=== PATIENT | male | born 1960 | race Caucasian/White ===

== ENCOUNTER → 2018-10-05 14:44 | Outpatient (CLI) | payer OTHER, MEDICAID, SELFPAY ==
--- NOTE | 2018-10-05 | DI.RAD.S_ITS ---
PROCEDURE: XR LUMBAR SPINE 2-3V INDICATIONS: LOW BACK PAIN/TINGLING TECHNIQUE: 3 views of the lumbar spine were acquired. COMPARISON: None. FINDINGS: Bones: 5 [id number] vertebrae are present. There is normal bony alignment. No vertebral body compression fractures. No suspicious bony lesions. There is a moderate degree of degenerative disease and a moderately severe degree of facet osteoarthritis along the lumbosacral spine with degenerative disc height reduction most prominent at L2-3 and facet osteoarthritis most prominent from L4-S1. Spinal and foraminal stenosis likely is associated. Soft tissues: Overlying bowel gas pattern is normal. No suspicious soft tissue calcifications. IMPRESSION: Moderately severe degenerative disc disease and facet osteoarthritis along the lumbosacral spine. No trauma found, no significant subluxation identified. Facet osteoarthritis at L4-5 and L5-S1 is moderately severe to severe in likely contributes to the presence of spinal and foraminal stenosis in those areas. Dictated by: Óscar Parr M.D. on 10/05/2018 at 16:34 Approved by: Óscar Parr M.D. on 10/05/2018 at 16:35
== END ==
PROVIDERS: PCP Nurse Practitioner Family; Visit Provider Nurse Practitioner Family
DX: M54.5 Low back pain (principal); M51.37 Other intervertebral disc degeneration, lumbosacral region; M47.817 Spondylosis without myelopathy or radiculopathy, lumbosacral region; M47.816 Spondylosis without myelopathy or radiculopathy, lumbar region
CPT/HCPCS: 72100

== ENCOUNTER → 2018-10-15 14:33 | Outpatient (CLI) | payer OTHER, MEDICAID, SELFPAY ==
[2018-10-15 14:55] LABS: Hematocrit 50.3 % (41-53); Hemoglobin 17.4 g/dL (13.5-17.5); Mean Corpuscular HGB Conc 34.5 % (30-36); Mean Corpuscular Hemoglobin 32.2 PG (26-34); Mean Corpuscular Volume 93.4 fL (80-100); Platelet Count 184 X10^3/uL (150-400); Red Blood Cell Count 5.39 X10^6/uL (4.5-5.9); Red Cell Distribution Width 12.9 % (11.6-14.8); White Blood Cell Count 8.7 X10^3/uL (4.5-11.0)
[2018-10-15 15:44] LABS: Erythrocyte Sedimentation Rate 2 MM/HR (0-15)
[2018-10-15 15:58] LABS: Alanine Aminotransferase 42 IU/L (21-72); Albumin 4.4 g/dL (3.5-5.0); Albumin Globulin Ratio 1.1 (1.0-2.8); Alkaline Phosphatase 68 U/L (38-126); Aspartate Aminotransferase 32 IU/L (17-59); BUN Creatinine Ratio 18.8 (6-22); Bilirubin Total 0.6 mg/dL (0.2-1.3); Blood Urea Nitrogen 15 mg/dL (9-20); Calcium 9.5 mg/dL (8.4-10.2); Carbon Dioxide 28 mmol/L (22-32); Chloride 101 mmol/L (98-107); Cholesterol 181 mg/dL (140-199); Estimated Glomerular Filt Rate > 60.0 mL/min (>60); Glucose 104 mg/dL (70-100); HDL Cholesterol 30 mg/dL (40-60); HEMOLYSIS 23 (0-50); LDL Cholesterol Calculated 131 mg/dL (<100); Potassium 4.3 mmol/L (3.4-5.1); Sodium 140 mmol/L (137-145); Total Protein 8.4 g/dL (6.3-8.2); Triglycerides 101 mg/dL (35-150)
[2018-10-15 17:02] LABS: Hep C Virus Ab w/Reflex Quant REACTIVE s/c (NEGATIVE)
== END ==
PROVIDERS: PCP Nurse Practitioner Family; Visit Provider Nurse Practitioner Family
DX: R53.83 Other fatigue (principal); M54.5 Low back pain; Z20.5 Contact with and (suspected) exposure to viral hepatitis
CPT/HCPCS: 36415; 80053; 80061; 85027; 85651; 86803; 87522

== ENCOUNTER → 2018-10-15 17:40 | Outpatient (CLI) | payer OTHER, MEDICAID, SELFPAY ==
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
== END ==
PROVIDERS: PCP Nurse Practitioner Family; Visit Provider Nurse Practitioner Family
DX: M54.5 Low back pain (principal); M79.605 Pain in left leg; M79.604 Pain in right leg; M51.36 Other intervertebral disc degeneration, lumbar region; M51.37 Other intervertebral disc degeneration, lumbosacral region; M48.061 Spinal stenosis, lumbar region without neurogenic claudication; M48.07 Spinal stenosis, lumbosacral region; E88.2 Lipomatosis, not elsewhere classified
CPT/HCPCS: 36415; 72148; 80053; 80061; 85027; 85651; 86803; 87522

== ENCOUNTER → 2018-10-31 16:58 | Outpatient (CLI) | payer OTHER, MEDICAID, SELFPAY ==
--- NOTE | 2018-10-31 17:02 | DI.RAD.S_ITS ---
PROCEDURE: XR SHOULDER RT MIN 2V INDICATIONS: right shoulder pain TECHNIQUE: 3 views of the shoulder were acquired. COMPARISON: None. FINDINGS: Bones: No fractures or dislocations. No suspicious bony lesions. Mild to moderate acromioclavicular and glenohumeral joint degeneration. Visualized ribs appear intact. Soft tissues: No suspicious soft tissue calcifications. IMPRESSION: No fractures. [id number] degenerative joint disease. Dictated by: Keya Juárez M.D. on 11/01/2018 at 9:39 Approved by: Keya Juárez M.D. on 11/01/2018 at 9:41
--- NOTE | 2018-10-31 17:02 | DI.RAD.S_ITS ---
PROCEDURE: XR LUMBAR SPINE MIN 4V INDICATIONS: worsening numbess tingling associated with back pain TECHNIQUE: 5 views of the lumbar spine were acquired. COMPARISON: None. FINDINGS: Bones: 5 nonrib-bearing vertebrae are present. There is grade 1 retrolisthesis at L3-L4 and grade one anterolisthesis at L4-L5. No vertebral body compression fractures. No suspicious bony lesions. There is degenerative disc disease, severe at L2-L3, moderate L1-L2, and L3-L4 and L4-L5. Severe facet arthropathy at L4-L5 and L5-S1. Soft tissues: Overlying bowel gas pattern is normal. No suspicious soft tissue calcifications. Oblique images: No pars defects. IMPRESSION: Severe degenerative disc and facet disease lumbar spine. Dictated by: Keya Juárez M.D. on 11/01/2018 at 10:15 Approved by: Keya Juárez M.D. on 11/01/2018 at 10:56
[2018-10-31 18:29] LABS: Hepatitis B Surface Antigen NEGATIVE s/c (NEGATIVE)
[2018-10-31 18:38] LABS: HIV 1 and 2 Antibody NEGATIVE (NEGATIVE)
[2018-11-02 14:10] LABS: Hepatitis B Core Antibody Nonreactive (Nonreactive)
[2018-11-02 14:47] LABS: Hepatitis B Surf Ab Qualitativ Nonreactive (Nonreactive)
[2018-11-03 13:38] LABS: Hepatitis A Ab IgM Nonreactive (Nonreactive); Hepatitis A Ab Total Reactive (Nonreactive)
== END ==
PROVIDERS: PCP Nurse Practitioner Family; Visit Provider Nurse Practitioner Family
DX: M54.5 Low back pain (principal); M25.511 Pain in right shoulder; Z20.5 Contact with and (suspected) exposure to viral hepatitis
CPT/HCPCS: 36415; 72110; 73030; 86703; 86704; 86706; 87340

== ENCOUNTER → 2019-01-15 12:47 | Outpatient (CLI) | payer OTHER, MEDICAID, SELFPAY ==
--- NOTE | 2019-01-15 12:48 | DI.US.S_ITS ---
PROCEDURE: US RENAL COMPLETE INDICATIONS: NEW ONSET UNCONTROLLED HTN TECHNIQUE: Real-time scanning was performed of the kidneys and bladder, with image documentation. COMPARISON: [facility], US, US ABDOMEN COMPLETE, 01/04/2019, 12:42. FINDINGS: Kidneys: Kidneys are normal in size. Right kidney measures 12.8 cm long; left kidney measures 13.3 cm long. Right renal cortical thickness is 0.9 cm; left renal cortical thickness is 1.5 cm. Renal cortical echotexture is normal. No hydronephrosis or nephrolithiasis. No suspicious solid mass lesions. 5 mm right renal cyst. Bladder: Pre-void bladder volume is 604 mL. Post-void residual is 43 mL. Pre-void images demonstrate no intraluminal masses or stones. On pre-void images, bilateral ureteral jets are noted with color Doppler interrogation. (Of note, ureteral jets may not be detectable in up to 25% of cases due to insufficient differences in specific gravity between ureteral and bladder urine). Miscellaneous: No free pelvic fluid. IMPRESSION: 1. Right renal cortical thinning. 2. 5 mm right renal cyst. 3. 43 cc or a bladder PVR. Dictated by: Scott RUFFIN Interpreted: Mariya To MD on 01/15/2019 at 15:46 Approved by: Mariya To M.D. on 01/15/2019 at 16:03
== END ==
PROVIDERS: PCP Nurse Practitioner Family; Visit Provider Nurse Practitioner Family
DX: N28.1 Cyst of kidney, acquired (principal); I10 Essential (primary) hypertension
CPT/HCPCS: 76770

== ENCOUNTER → 2019-01-22 13:57 | Outpatient (CLI) | payer OTHER, MEDICAID, SELFPAY ==
--- NOTE | 2019-01-22 | DI.MRI.S_ITS ---
PROCEDURE: MR ABDOMEN WO/W CON INDICATIONS: CHRONIC HEPATITIS C WITHOUT HEPATIC COMA TECHNIQUE: Coronal HASTE, axial 2D FLASH in- and [id number]; axial breath-hold T2 FSE. Dynamic axial VIBE during the administration of contrast; post-contrast coronal VIBE or 2D FLASH with fat saturation from the hepatic dome to the iliac crests. Optional diffusion weighted imaging and ADC may be performed. COMPARISON: [facility], US, US ABDOMEN COMPLETE, 01/04/2019, 12:42. FINDINGS: Image quality: There is motion artifact limiting evaluation. Lung bases: No basal pleural effusions. Heart size is normal. Solid organs: Within segment 2 of the left hepatic lobe there is an oval T1 hypointense and T2 hyperintense lesion demonstrated measuring up to 1.1 x 1.0 cm. This demonstrates nodular peripheral enhancement on the arterial and nannette venous phases with progressive centripetal enhancement. Although the delayed series is limited by motion artifact, there is likely persistent mild hypervascular enhancement. The findings are compatible with a cavernous hemangioma. Elsewhere in the liver, no other discrete mass, abnormal enhancement, or definite suspicious washout identified to suggest a hepatoma. Gallbladder appears within normal limits without gallstones. Biliary system is non dilated. Pancreas is normal in morphology. Spleen is normal in size and enhancement. No adrenal nodules. The kidneys demonstrate no hydronephrosis. There is a small right renal cyst. Nodes and vessels: No retroperitoneal or mesenteric adenopathy by size criteria. Aorta and inferior vena cava are normal in size. Bowel and peritoneum: Visualized bowel loops are normal in caliber. No free fluid. Bones and soft tissues: No ventral hernias. Bone marrow is normal in overall signal. IMPRESSION: 1. Left hepatic lobe lesion demonstrated consistent with a hemangioma. 2. No definite evidence of a hepatoma, with evaluation slightly limited by motion artifact. Dictated by: Jostin Ireland M.D. on 01/22/2019 at 16:38 Approved by: Jostin Ireland M.D. on 01/22/2019 at 16:46
== END ==
PROVIDERS: PCP Nurse Practitioner Family; Visit Provider Physician Assistant
DX: B18.2 Chronic viral hepatitis C (principal); N28.1 Cyst of kidney, acquired; K76.9 Liver disease, unspecified
CPT/HCPCS: 74183; A9579

== ENCOUNTER 2019-01-29 09:45 | Outpatient (RCR) | payer OTHER, MEDICAID, SELFPAY ==
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
--- NOTE | 2018-10-15 14:19 | PT.OPPOC ---
Current Diagnoses Low back pain (10/15/18) Provider Visit Care Team Role Provider Type KELLI Morejon Attending Provider Advanced Chalk Machine Operator Primary Care Provider Specialty: Family Practice Address: [address] [place] [address], [facility], [place], [address] Email: Plan Of Care PT-OP-T Assessment and Plan Start: 10/15/18 07:29 Freq: Status: Active Protocol: Document 10/15/18 13:00 AMB (Rec: 10/17/18 11:14 AMB [email or web address]) Physical Therapy Assessment Rehab Potential Rehabilitation Potential Good Evaluation Complexity Number of Personal Factors/Comorbidities 1-2 Number of Body Systems Impaired 3 Clinical Presentation at Evaluation Evolving Goals Three Impairment strength Short Term Goal (STG) Inocencio will show improved LE and core strength by performing a full squat without an increase in pain. STG Duration 4 week Fpc Goal (LTG) Inocencio will show improved core stability by performing all bed mobility without an increase in baseline pain. LTG Duration 8 weeks Two Impairment ROM Short Term Goal (STG) Inocencio will increase his lumbar flexion to 50 degrees. STG Duration 4 weeks Visual Communications Instructor Goal (LTG) Inocencio will increase his straight leg raise on the left to 65 degrees to show decreased neural tension. LTG Duration 8 weeks One Impairment Body mechanics Short Term Goal (STG) Inocencio will lift 25# from the floor to waist height without an increase in baseline pain and with good body mechanics. STG Duration 4 weeks Fpc Goal (LTG) Inocencio will lift 25# from waist to head height without an increase in baseline pain and with good body mechanics. LTG Duration 8 weeks Assessment Summary Assessment Inocencio presents to PT with chronic back pain with new onset left radicular pain that limits his ability to work and move about his home due to pain. He states that he needs to be able to lift 75# to return to work. His shoulder pain also limits his ability to return to work. Inocencio will benefit from core stability, manual therapy, and body mechanics training to reduce his pain and help him return to work, although the physical nature of his work and the degree of degeneration in his spine may limit the speed of this progress. Physical Therapy Plan Frequency and Duration Frequency of Treatment 2x/Week Duration of Treatment 8 weeks Plan of Care Start Date 10/15/18 Plan of Care End Date 12/10/18 Therapeutic Interventions Therapeutic Interventions Aquatic Therapy Gait Training Home Exercise Program Manual Therapy Neuromuscular Re-education Self-Care/Home Management Therapeutic Activities Therapeutic Exercises Modalities Cold Pack/Ice Massage Electric Stimulation Hot Packs Traction- Mechanical Ultrasound Next Visit Focus/Plan Next Note Type Treatment Note Next Visit Plan Progress core stability, nerve glides/ manual traction to reduce radicular pain, body mechanics training Plan of Care Dates Plan of Care Start Date 10/15/18 Plan of Care End Date 12/10/18 Please Sign and Return: I have reviewed this Plan of Care and certify that the skilled therapy services above are required to meet the patient?s needs. Physician Signature Date Printed Name and Credentials Clinical Instructor Signature Printed Name and Credentials
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
--- NOTE | 2018-12-12 15:58 | PT.OPPOC ---
Current Diagnoses Low back pain (12/12/18) Provider Visit Care Team Role Provider Type KELLI Morejon Attending Provider [employer] Maintenance Inspector Primary Care Provider Specialty: Family Practice Address: [address] [place] [address], [id number] Email: Plan Of Care PT-OP-T Assessment and Plan Start: 10/15/18 07:29 Freq: Status: Active Protocol: Document 12/12/18 14:30 BS (Rec: 12/12/18 14:41 BS [id number]) Physical Therapy Assessment Goals Three Impairment strength Short Term Goal (STG) Inocencio will show improved LE and core strength by performing a full squat without an increase in pain. NOT MET STG Duration 4 week Residential Goal (LTG) Inocencio will show improved core stability by performing all bed mobility without an increase in baseline pain. NOT MET LTG Duration 8 weeks Two Impairment ROM Short Term Goal (STG) Inocencio will increase his lumbar flexion to 50 degrees. PARTIALLY MET. CURRENTLY 40 DEG. STG Duration 4 weeks Endbander Goal (LTG) Inocencio will increase his straight leg raise on the left to 65 degrees to show decreased neural tension. PARTIALLY MET. Currently at 55 deg SLR. LTG Duration 8 weeks One Impairment Body mechanics Short Term Goal (STG) Inocencio will lift 25# from the floor to waist height without an increase in baseline pain and with good body mechanics. STG Duration 4 weeks Endbander Goal (LTG) Inocencio will lift 25# from waist to head height without an increase in baseline pain and with good body mechanics. LTG Duration 8 weeks Assessment Summary Assessment Pt continues to have low back pain with left side more painful than the right. He reports some pain in upper back occasionally. Pt has made slow progress with physical therapy up to this point in time and continues to demo tightness in bilateral hamstrings, hypomobility and stiffness to lumbar and thoracic spine, and high intensity subjective pain complaints. Pt reports 7/10 pain today. He tolerates light lumbar stabilization strengthening excises but pain has limited progression of exercises. Pt plans to have an injection for his low back pain within the next couple of weeks. Physical Therapy Plan Frequency and Duration Frequency of Treatment 1-2x/week Duration of Treatment 8 weeks Plan of Care Start Date 12/12/18 Plan of Care End Date 02/06/19 Therapeutic Interventions Therapeutic Interventions Aquatic Therapy Gait Training Home Exercise Program Manual Therapy Neuromuscular Re-education Patient/Caregiver Education Self-Care/Home Management Soft Tissue Mobilization Taping Therapeutic Activities Therapeutic Exercises Modalities Cold Pack/Ice Massage Electric Stimulation Hot Packs Traction- Mechanical Ultrasound Next Visit Focus/Plan Next Note Type Treatment Note Next Visit Plan Cotinue with lumbar mobility and HS stretching. Progression to standing lumbar stabilization as tolerated by pt. Plan of Care Dates Plan of Care Start Date 12/12/18 Plan of Care End Date 02/06/19 Please Sign and Return: I have reviewed this Plan of Care and certify that the skilled therapy services above are required to meet the patient?s needs. Physician Signature Date Printed Name and Credentials Clinical Instructor Signature Printed Name and Credentials
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
== END 2019-02-15 11:10 | disposition home or self-care (01) ==
LOC: PHYS 09:45
PROVIDERS: PCP Nurse Practitioner Family; Visit Provider Nurse Practitioner Family
DX: M54.5 Low back pain (principal)
CPT/HCPCS: 97014; 97110; 97140; 97162; 97530; G0283

== ENCOUNTER 2019-03-08 07:46 | Day surgery (SDC) | payer OTHER, MEDICAID, SELFPAY ==
[2019-03-08 08:05] VITALS: BP 155/111; PULSE 86; RESP 15; TEMP 36.6; O2SAT 99
[2019-03-08 08:20] VITALS: BMI 25.7
[2019-03-08 08:30] VITALS: BMI 25.7
--- NOTE | 2019-03-08 09:49 | PM.HP.1 ---
History of Present Illness Date Patient Seen: 03/08/19 Time Patient Seen: 09:45 Chief complaint: [id number] Narrative: The patient is a gentleman here for a screening colonoscopy. This is his 1st exam. No family history of colon cancer. Patient History Medical History Degenerative disc disease, lumbar (Acute) Facet joint disease (Acute) Renal cyst, right (Acute) Cataracts, bilateral (Chronic ~2009) Chronic back pain (Chronic ~1973) Headache (Chronic) Hearing loss (Chronic ~1994) Hepatitis C (Chronic) Shoulder pain (Chronic ~1991) Vision disorder (Chronic) Chicken pox (Resolved) Surgical History Anesthesia (Resolved) History of mandibular surgery (Resolved ~1979) History of surgery on right wrist (Resolved ~1980) Family History Father Cancer Mother Cancer Brother Hypertension Social History household members: none Smoking Status: Current every day smoker Tobacco: How many years used: 25 quit status: not considering quitting (declined smoking cessation) second hand exposure: No alcohol intake: never substance use type: does not use Family & Social History Family History Father Cancer Mother Cancer Brother Hypertension Social History: household members none Tobacco & Substance use: Smoking Status Current every day smoker alcohol intake never Meds Home Medications Medication Instructions Recorded Confirmed Type epinephrine 0.3 mg/0.3 mL 0.3 mg IM ONCE PRN #1 each 10/05/18 03/08/19 Rx injection, auto-injector ibuprofen 200 mg tablet 600 mg PO BID PRN tab 10/05/18 03/08/19 History pravastatin 40 mg tablet 40 mg PO DAILY #90 tab 10/16/18 03/08/19 Rx blood pressure monitor kit #1 each 12/12/18 12/12/18 Rx metoprolol succinate ER 50 mg 50 mg PO DAILY #90 tab 12/26/18 03/08/19 Rx tablet,extended release 24 hr chlorthalidone 25 mg tablet 25 mg PO DAILY #90 tab 01/10/19 03/08/19 Rx lisinopril 40 mg tablet 40 mg PO DAILY #90 tab 02/05/19 03/08/19 Rx Allergies Allergy/AdvReac Type Severity Reaction Status Date / Time Bees Allergy Severe Anaphylaxis Uncoded 03/08/19 08:20 Review of Systems Review of Systems All systems reviewed & are unremarkable except as noted in HPI and below Exam Vital Signs (past 8 hours): - 03/08/19 08:05 Temperature 97.9 F Pulse Rate 86 Respiratory Rate 15 Blood Pressure 155/111 H Pulse Oximetry 99 Oxygen Delivery Method Room Air Narrative Exam Narrative: Pleasant cooperative patient no apparent distress. Lungs are clear to auscultation. No rales or rhonchi. Heart regular rate and rhythm no murmur gallop. Abdomen is soft nontender without mass. No obvious hernias. Patient is alert and oriented x3. Assessment & Plan Assessment & Plan narrative: The patient for a screening colonoscopy. I have discussed the procedure with them. Risks of bleeding, perforation which would necessitate major operation, failure to find remove all lesions, the potential tattoo were all discussed. All questions were answered. They wished to proceed.
--- NOTE | 2019-03-08 09:51 | PM.PREOP ---
Pre-operative Note Interval Note History & Physical reviewed/Exam performed by Physician: Yes Changes to H&P: No ASA Class (for procedural sedation): III
--- NOTE | 2019-03-08 10:26 | PM.OP.ENDO ---
Operative Date/Time/Diagnoses Date of procedure: 03/08/19 Time of procedure: 10:27 Pre-op diagnosis: Screening examination. This is the patient's 1st colonoscopy. Post-op diagnosis: same (Diverticulosis of the sigmoid colon. Small internal hemorrhoids) Procedure & Clinicians Study performed: Colonoscopy Same procedure as scheduled: Yes Indications: Screening for colon cancer Surgeon: Erik Goodwin Procedure Notes SCOAP/Timeout: Performed Procedure in detail: The patient was placed in the left lateral decubitus position and underwent IV sedation directed by the surgeon consisting of fentanyl and Versed. Digital exam was unremarkable except for decreased sphincter tone. The scope was inserted and advanced through the rectum into the sigmoid, descending, transverse, and ascending colon. I noted diverticulosis in the sigmoid colon. There was a very tight turn before entering the ascending colon and patient had to be repositioned in order to make my way around it.. The cecum was reached identified by the ileocecal valve and the appendiceal opening. The scope was gradually brought out. No Polyps were found. The scope ultimately was retroflexed in the rectum. The appearance was remarkable for small internal hemorrhoids without ulceration. The scope was removed and the patient tolerated the procedure well. Prep was excellent. Scope withdrawal time: 8 minutes Sedation minutes: 38 Findings: diverticulosis (Sigmoid) and internal hemorrhoids Recommendations: Colonscopy in 10 years Follow up: as needed Disposition: PACU
[2019-03-08] MEDS: MIDAZOLAM 5 MG/5 ML VIAL IV (10:28)
[2019-03-08] MEDS: fentaNYL 250 MCG/5 ML INJ IV (10:28)
[2019-03-08 10:29] VITALS: BP 121/88; PULSE 78; RESP 12; TEMP 36.8; O2SAT 96
[2019-03-08 10:34] VITALS: BP 117/81; PULSE 72; RESP 11; O2SAT 95
[2019-03-08 10:39] VITALS: BP 121/88; PULSE 78; RESP 12; O2SAT 96
== END 2019-03-08 11:08 | disposition home or self-care (01) ==
PROVIDERS: PCP Nurse Practitioner Family; Visit Provider Specialist
PROC: 0DJD8ZZ Inspection of Lower Intestinal Tract, Via Natural or Artificial Opening Endoscopic (ICD-10-PCS; CPT 45378; principal; 2019-03-08 08:45)
DX: Z12.11 Encounter for screening for malignant neoplasm of colon (principal); K57.30 Diverticulosis of large intestine without perforation or abscess without bleeding; K64.8 Other hemorrhoids; F17.210 Nicotine dependence, cigarettes, uncomplicated
CPT/HCPCS: 45378; 99152; 99153; J2250; J3010

== ENCOUNTER 2019-03-14 08:38 | Day surgery (SDC) | payer OTHER, MEDICAID, SELFPAY ==
[2019-02-25 12:32] VITALS: BMI 26.1
[2019-03-14 09:05] VITALS: BP 161/103; PULSE 60; RESP 16; TEMP 36.1; O2SAT 96; BMI 25.7
[2019-03-14] MEDS: LACTATED RINGERS 1,000 ML 100 ML IV (09:21)
--- NOTE | 2019-03-14 09:59 | PM.HP.1 ---
History of Present Illness Date Patient Seen: 03/14/19 Time Patient Seen: 09:59 Chief complaint: [id number] Narrative: Patient is a gentleman here for removal of a fatty mass that is probably a lipoma right posterior neck. Been present for long time and growing. It has become bothersome to him. He had a recent colonoscopy. Patient History Medical History (Updated 03/14/19 @ 10:00 by Erik Goodwin MD) Degenerative disc disease, lumbar (Acute) Facet joint disease (Acute) Renal cyst, right (Acute) Cataracts, bilateral (Chronic ~2009) Chronic back pain (Chronic ~1973) Headache (Chronic) Hearing loss (Chronic ~1994) Shoulder pain (Chronic ~1991) Vision disorder (Chronic) Chicken pox (Resolved) Surgical History Anesthesia (Resolved) History of mandibular surgery (Resolved ~1979) History of surgery on right wrist (Resolved ~1980) Family History Father Cancer Mother Cancer Brother Hypertension Social History household members: none Smoking Status: Current every day smoker Tobacco: How many years used: 25 quit status: not considering quitting (declined smoking cessation) second hand exposure: No alcohol intake: never substance use type: does not use Family & Social History Social History: household members none Tobacco & Substance use: Smoking Status Current every day smoker Smoking packs per day 1 alcohol intake never Former IV drug user Meds Home Medications Medication Instructions Recorded Confirmed Type epinephrine 0.3 mg/0.3 mL 0.3 mg IM ONCE PRN #1 each 10/05/18 03/14/19 Rx injection, auto-injector ibuprofen 200 mg tablet 600 mg PO BID PRN tab 10/05/18 03/14/19 History pravastatin 40 mg tablet 40 mg PO DAILY #90 tab 10/16/18 03/14/19 Rx blood pressure monitor kit #1 each 12/12/18 03/14/19 Rx metoprolol succinate ER 50 mg 50 mg PO DAILY #90 tab 12/26/18 03/14/19 Rx tablet,extended release 24 hr chlorthalidone 25 mg tablet 25 mg PO DAILY #90 tab 05/23/19 07/25/19 Rx lisinopril 40 mg tablet 40 mg PO DAILY #90 tab 02/05/19 03/14/19 Rx Allergies Allergy/AdvReac Type Severity Reaction Status Date / Time Bees Allergy Severe Anaphylaxis Uncoded 03/14/19 08:56 Review of Systems Review of Systems All systems reviewed & are unremarkable except as noted in HPI and below ENT Comments: Missing multiple teeth Hematologic/Lymphatic Comments: Thought he had hepatitis but in fact does not. HIV negative Exam Vital Signs (past 8 hours): - 03/14/19 09:05 Temperature 97.0 F L Pulse Rate 60 Respiratory Rate 16 Blood Pressure 161/103 H Pulse Oximetry 96 Oxygen Delivery Method Room Air Narrative Exam Narrative: No apparent distress. Patient has a 4 x 4 cm mass right posterior neck. Is in the subcu. No other masses or nodes in the neck or supraclavicular area. Lungs are clear to auscultation no rales or rhonchi. Heart regular rate and rhythm without murmur gallop. Missing multiple teeth. No open lesions in his mouth. Assessment & Plan Assessment & Plan narrative: Symptomatic neck mass clinically a lipoma. Recommend removal. I have discussed the procedure with him. Risks of bleeding infection scarring all discussed. Fluid accumulation also discussed. He appears to understand wishes to proceed.
--- NOTE | 2019-03-14 10:03 | PM.PREOP ---
Pre-operative Note Interval Note History & Physical reviewed/Exam performed by Physician: Yes Changes to H&P: No
[2019-03-14] MEDS: CEFAZOLIN 2 GM/100 ML FROZ.PIGGY IV (10:13)
[2019-03-14] MEDS: BUPIVACAINE 0.5% W/ EPI (PF) VIAL 30 ML INJ (10:48)
[2019-03-14 11:01] VITALS: BP 108/80; PULSE 62; RESP 12; TEMP 36.4; O2SAT 96
[2019-03-14 11:06] VITALS: BP 101/69; PULSE 65; RESP 14; O2SAT 94
--- NOTE | 2019-03-14 11:07 | PM.OP.1 ---
Operative Date/Time/Diagnoses Date of procedure: 03/14/19 Time of procedure: 11:07 Pre-op diagnosis: Mass right posterior neck clinically a lipoma Post-op diagnosis: other (Mass posterior neck sebaceous cyst) Procedure & Clinicians Procedure: Excision of sebaceous cyst Same procedure as scheduled: Yes Indications: Growing painful mass Surgeon: Erik Goodwin Click Yes if Unassisted: Yes Anesthesia Type: General Operative Notes Findings: Sebaceous cyst. 4 x 4 cm prior to rupture Closure Type: primary Specimen(s): other (Cyst) Prosthetic devices, grafts, tissues, transplants, or devices: None Estimated Blood Loss (mL): 5 Blood products transfused: none Procedure in detail: The patient is placed supine on the operating table underwent general LMA anesthesia. He was placed in left lateral decubitus position supported by a beanbag with padding to his axilla and between his legs. He was prepped and draped in the usual fashion. Incision was made overlying the mass and carried down to the level of the mass. Dissection was begun around it. There was a point at which the tooth forceps used to retract it opened into the mass. This is not unusual for sebaceous cyst. There was some spillage of fluid. The cyst was dissected from surrounding structures and removed. Hemostasis was achieved with cautery. Local anesthetic was infiltrated. Three 0 Vicryl was used to reapproximate the subcu. Four 0 Vicryl subcuticular running suture was used to close the skin. Steri-Strips and dressing were applied. Patient tolerated the procedure well. He was awakened and extubated taken recovery area in good condition. Complications: none Condition: stable Disposition: PACU
[2019-03-14 11:11] VITALS: BP 108/80; PULSE 64; RESP 10; O2SAT 92
[2019-03-14] MEDS: fentaNYL 100 MCG/2 ML INJ 50 MCG IV (11:13)
[2019-03-14] MEDS: HYDROCODONE/ACET 5/325 TABLET 1 TAB PO (11:24)
[2019-03-14 11:25] VITALS: BP 116/86; PULSE 62; RESP 11; TEMP 36.2; O2SAT 93
--- NOTE | 2019-03-14 11:27 | SUR.PHASEI ---
Assumed care from Miguel Lainez RN. Dressing remains C/D/I. No swelling swallow speech good/strong. Medicated with fentanyl and norco for pain.
[2019-03-14 11:52] VITALS: BP 118/79; PULSE 58; RESP 16; TEMP 36.5; O2SAT 94
--- NOTE | 2019-03-14 11:58 | SUR.PHASEII ---
Stable post op, dressed when ready left when ready and in stable condition.
== END 2019-03-14 11:51 | disposition home or self-care (01) ==
PROVIDERS: PCP Nurse Practitioner Family; Visit Provider Specialist
PROC: (CPT 11426; principal; 2019-03-14 09:45)
DX: L72.3 Sebaceous cyst (principal); F17.210 Nicotine dependence, cigarettes, uncomplicated
CPT/HCPCS: 11426; J0690; J1100; J2405; J2704; J3010

== ENCOUNTER → 2019-04-18 14:48 | Outpatient (CLI) | payer OTHER, MEDICAID, SELFPAY ==
[2019-04-18 16:02] LABS: BUN Creatinine Ratio 17.8 (6-22); Blood Urea Nitrogen 16 mg/dL (9-20); Carbon Dioxide 29 mmol/L (22-32); Chloride 102 mmol/L (98-107); Cholesterol 174 mg/dL (140-199); Estimated Glomerular Filt Rate > 60.0 mL/min (>60); Glucose 107 mg/dL (80-110); HDL Cholesterol 23 mg/dL (40-60); HEMOLYSIS 35 (0-50); LDL Cholesterol Calculated 119 mg/dL (<100); Potassium 4.2 mmol/L (3.4-5.1); Sodium 142 mmol/L (137-145); Triglycerides 160 mg/dL (35-150)
[2019-04-18 17:27] LABS: Creatinine Urine Random 23.3 mg/dL
[2019-04-18 17:36] LABS: Microalbumi Creatinin Ratio Ur 25.7 ug/mg CR (<30); Microalbumin Urine Random < 0.6 mg/dL (0-1.6)
== END ==
PROVIDERS: PCP Nurse Practitioner Family; Visit Provider Nurse Practitioner Family
DX: E78.2 Mixed hyperlipidemia (principal); I10 Essential (primary) hypertension
CPT/HCPCS: 36415; 80048; 80061; 82043; 82570

== ENCOUNTER → 2019-06-26 12:56 | Outpatient (CLI) | payer OTHER, MEDICAID, SELFPAY ==
[2019-06-26 13:42] LABS: Add Manual Diff / Slide Review NO; Basophils Absolute Auto 100 /uL (0-100); Basophils Percent Auto 0.5 % (0-2); Eosinophils Absolute Auto 300 /uL (0-450); Eosinophils Percent Auto 2.4 % (2-4); Hematocrit 47.9 % (41-53); Hemoglobin 16.6 g/dL (13.5-17.5); Lymphocytes Absolute Auto 3700 /uL (1100-4500); Lymphocytes Percent Auto 34.5 % (25-40); Mean Corpuscular HGB Conc 34.8 % (30-36); Mean Corpuscular Volume 94.7 fL (80-100); Monocytes Absolute Auto 600 /uL (0-900); Monocytes Percent Auto 5.4 % (3-14); Neutrophils Absolute Auto 6100 /uL (1500-7000); Neutrophils Percent Auto 57.2 % (50-75); Platelet Count 208 X10^3/uL (150-400); Red Blood Cell Count 5.05 X10^6/uL (4.5-5.9); White Blood Cell Count 10.7 X10^3/uL (4.5-11.0)
[2019-06-26 14:29] LABS: Alanine Aminotransferase 17 IU/L (<50); Albumin 4.8 g/dL (3.5-5.0); Albumin Globulin Ratio 1.3 (1.0-2.8); Alkaline Phosphatase 79 U/L (38-126); Aspartate Aminotransferase 23 IU/L (17-59); Bilirubin Total 0.7 mg/dL (0.2-1.3); Blood Urea Nitrogen 16 mg/dL (9-20); Carbon Dioxide 28 mmol/L (22-32); Chloride 99 mmol/L (98-107); Estimated Glomerular Filt Rate > 60.0 mL/min (>60); Globulin 3.7 g/dL (1.7-4.1); Glucose 122 mg/dL (80-110); HEMOLYSIS < 15 (0-50); Potassium 4.2 mmol/L (3.4-5.1); Sodium 139 mmol/L (137-145); Total Protein 8.5 g/dL (6.3-8.2)
[2019-06-26 14:51] LABS: Creatinine Urine Random 38.2 mg/dL
[2019-06-26 14:54] LABS: Microalbumi Creatinin Ratio Ur 18.3 ug/mg CR (<30); Microalbumin Urine Random 0.7 mg/dL (0-1.6)
[2019-06-26 16:48] LABS: Hemoglobin A1C% w Est Avg Glu 5.8 % (4.0-6.0)
== END ==
PROVIDERS: Family Provider Physician Assistant; PCP Nurse Practitioner Family; Visit Provider Nurse Practitioner Family
DX: B18.2 Chronic viral hepatitis C (principal); I10 Essential (primary) hypertension; R73.9 Hyperglycemia, unspecified
CPT/HCPCS: 36415; 80053; 82043; 82570; 83036; 85025; 87522

== ENCOUNTER → 2020-03-03 13:36 | Outpatient (CLI) | payer OTHER, MEDICAID, SELFPAY ==
[2020-03-03 14:11] LABS: BUN Creatinine Ratio 24.4 (6-22); Blood Urea Nitrogen 20 mg/dL (9-20); Calcium 9.8 mg/dL (8.4-10.2); Carbon Dioxide 30 mmol/L (22-32); Chloride 105 mmol/L (98-107); Cholesterol 149 mg/dL (140-199); Estimated Glomerular Filt Rate > 60.0 mL/min (>60); Glucose 125 mg/dL (80-110); HDL Cholesterol 27 mg/dL (40-60); HEMOLYSIS < 15 (0-50); LDL Cholesterol Calculated 102 mg/dL (<100); Potassium 4.1 mmol/L (3.4-5.1); Sodium 140 mmol/L (137-145); Triglycerides 102 mg/dL (35-150)
== END ==
PROVIDERS: Family Provider Physician Assistant; PCP Nurse Practitioner Family; Referring Provider Nurse Practitioner Family; Visit Provider Nurse Practitioner Family
DX: E78.2 Mixed hyperlipidemia (principal); I10 Essential (primary) hypertension
CPT/HCPCS: 36415; 80048; 80061

== ENCOUNTER → 2020-03-12 15:24 | Outpatient (CLI) | payer OTHER, MEDICAID, SELFPAY | PROVIDERS: Family Provider Physician Assistant; PCP Nurse Practitioner Family; Referring Provider Nurse Practitioner Family; Visit Provider Nurse Practitioner Family | DX: R73.9 Hyperglycemia, unspecified (principal) | CPT/HCPCS: 36415; 83036 ==

== ENCOUNTER → 2020-12-17 16:22 | Outpatient (CLI) | payer OTHER, MEDICAID, SELFPAY ==
[2020-12-17 17:10] LABS: Add Manual Diff / Slide Review NO; Basophils Absolute Auto 0 /uL (0-100); Basophils Percent Auto 0.3 % (0-2); Eosinophils Absolute Auto 300 /uL (0-450); Eosinophils Percent Auto 2.3 % (2-4); Hemoglobin 16.7 g/dL (13.5-17.5); Lymphocytes Absolute Auto 4100 /uL (1100-4500); Lymphocytes Percent Auto 34.2 % (25-40); Mean Corpuscular Hemoglobin 32.1 PG (26-34); Mean Corpuscular Volume 94.5 fL (80-100); Monocytes Absolute Auto 600 /uL (0-900); Monocytes Percent Auto 4.7 % (3-14); Neutrophils Absolute Auto 7000 /uL (1500-7000); Neutrophils Percent Auto 58.5 % (50-75); Platelet Count 178 X10^3/uL (150-400); Red Blood Cell Count 5.19 X10^6/uL (4.5-5.9); Red Cell Distribution Width 13.1 % (11.6-14.8)
[2020-12-17 17:26] LABS: Alanine Aminotransferase 17 IU/L (<50); Albumin 4.4 g/dL (3.5-5.0); Albumin Globulin Ratio 1.2 (1.0-2.8); Alkaline Phosphatase 66 U/L (38-126); Aspartate Aminotransferase 26 IU/L (17-59); BUN Creatinine Ratio 20.7 (6-22); Bilirubin Total 0.4 mg/dL (0.2-1.3); Blood Urea Nitrogen 19 mg/dL (9-20); Calcium 9.4 mg/dL (8.4-10.2); Carbon Dioxide 24 mmol/L (22-32); Chloride 107 mmol/L (98-107); Estimated Glomerular Filt Rate > 60.0 mL/min (>60); Globulin 3.7 g/dL (1.7-4.1); Glucose 88 mg/dL (80-110); HEMOLYSIS 16 (0-50); Potassium 4.2 mmol/L (3.4-5.1); Sodium 140 mmol/L (137-145); Total Protein 8.1 g/dL (6.3-8.2)
== END ==
PROVIDERS: Family Provider Physician Assistant; PCP Nurse Practitioner Family; Referring Provider Nurse Practitioner Family; Visit Provider Nurse Practitioner Family
DX: I10 Essential (primary) hypertension (principal)
CPT/HCPCS: 36415; 80053; 85025

== ENCOUNTER → 2020-12-29 16:17 | Outpatient (CLI) | payer OTHER, MEDICAID, SELFPAY ==
[2020-12-29 16:55] LABS: Hematocrit 47.5 % (41-53); Hemoglobin 16.3 g/dL (13.5-17.5); Mean Corpuscular HGB Conc 34.3 % (30-36); Mean Corpuscular Hemoglobin 32.3 PG (26-34); Platelet Count 196 X10^3/uL (150-400); Red Blood Cell Count 5.05 X10^6/uL (4.5-5.9)
== END ==
PROVIDERS: Family Provider Physician Assistant; PCP Nurse Practitioner Family; Referring Provider Nurse Practitioner Family; Visit Provider Nurse Practitioner Family
DX: D72.829 Elevated white blood cell count, unspecified (principal)
CPT/HCPCS: 36415; 85027

== ENCOUNTER → 2021-03-24 14:07 | Outpatient (CLI) | payer OTHER, MEDICAID, SELFPAY ==
[2021-03-24 16:04] LABS: Hematocrit 47.1 % (41-53); Hemoglobin 15.9 g/dL (13.5-17.5); Mean Corpuscular HGB Conc 33.8 % (30-36); Mean Corpuscular Hemoglobin 32.4 PG (26-34); Mean Corpuscular Volume 95.8 fL (80-100); Platelet Count 207 X10^3/uL (150-400); Red Blood Cell Count 4.91 X10^6/uL (4.5-5.9); Red Cell Distribution Width 12.9 % (11.6-14.8); White Blood Cell Count 9.4 X10^3/uL (4.5-11.0)
[2021-03-24 16:13] LABS: Alanine Aminotransferase 17 IU/L (<50); Albumin 4.3 g/dL (3.5-5.0); Albumin Globulin Ratio 1.3 (1.0-2.8); Alkaline Phosphatase 54 U/L (38-126); Aspartate Aminotransferase 26 IU/L (17-59); BUN Creatinine Ratio 15.7 (6-22); Bilirubin Total 0.6 mg/dL (0.2-1.3); Blood Urea Nitrogen 14 mg/dL (9-20); Calcium 9.5 mg/dL (8.4-10.2); Carbon Dioxide 26 mmol/L (22-32); Chloride 106 mmol/L (98-107); Estimated Glomerular Filt Rate > 60.0 mL/min (>60); Globulin 3.4 g/dL (1.7-4.1); Glucose 118 mg/dL (80-110); HEMOLYSIS < 15 (0-50); Potassium 4.2 mmol/L (3.4-5.1); Sodium 140 mmol/L (137-145); Total Protein 7.7 g/dL (6.3-8.2)
== END ==
PROVIDERS: Family Provider Physician Assistant; PCP Nurse Practitioner Family; Referring Provider Nurse Practitioner Family; Visit Provider Nurse Practitioner Family
DX: I10 Essential (primary) hypertension (principal)
CPT/HCPCS: 36415; 80053; 85027

== ENCOUNTER 2022-08-17 15:42 | Inpatient (IN) | payer OTHER, MEDICAID, SELFPAY ==
[2022-08-17] VITALS (16 sets, daily range): BP systolic 102–151; BP diastolic 55–106; PULSE 88–110; RESP 18–27; TEMP 36.8; O2SAT 91–97; BMI 25.8
--- NOTE | 2022-08-17 16:02 | DI.RAD.S_ITS ---
PROCEDURE: XR CHEST 1V INDICATIONS: Shortness of breath TECHNIQUE: One view of the chest was acquired. COMPARISON: None. FINDINGS: Surgical changes and devices: None. Lungs and pleura: Moderate bilateral diffuse reticulonodular pulmonary opacity. No pneumothorax. Small left pleural effusion. Mediastinum: Mediastinal contours appear normal. Heart size is normal. Bones and chest wall: No suspicious bony lesions. Overlying soft tissues appear unremarkable. IMPRESSION: Moderate bilateral pneumonia. Small left pleural effusion. Dictated by: Tiffanie Bond M.D. on 08/17/2022 at 16:24 Approved by: Tiffanie Bond M.D. on 08/17/2022 at 16:25
[2022-08-17 16:43] LABS: Add Manual Diff / Slide Review NO; Basophils Absolute Auto 0 /uL (0-100); Basophils Percent Auto 0.6 % (0-2); Eosinophils Absolute Auto 100 /uL (0-450); Eosinophils Percent Auto 0.6 % (2-4); Hematocrit 44.9 % (41-53); Hemoglobin 15.2 g/dL (13.5-17.5); Lymphocytes Absolute Auto 1500 /uL (1100-4500); Lymphocytes Percent Auto 17.5 % (25-40); Mean Corpuscular HGB Conc 33.8 % (30-36); Mean Corpuscular Hemoglobin 31.3 PG (26-34); Mean Corpuscular Volume 92.7 fL (80-100); Monocytes Absolute Auto 500 /uL (0-900); Monocytes Percent Auto 6.3 % (3-14); Neutrophils Absolute Auto 6300 /uL (1500-7000); Platelet Count 215 X10^3/uL (150-400); Red Blood Cell Count 4.84 X10^6/uL (4.5-5.9); Red Cell Distribution Width 13.1 % (11.6-14.8); White Blood Cell Count 8.4 X10^3/uL (4.5-11.0)
[2022-08-17 16:45] LABS: INR 1.3 (0.9-1.3); Prothrombin Time 14.8 SECONDS (10.1-12.7)
[2022-08-17 16:50] LABS: Lactate (Lactic Acid) 1.6 mmol/L (0.7-2.1)
[2022-08-17 16:51] LABS: Alanine Aminotransferase 17 IU/L (<50); Albumin 3.6 g/dL (3.5-5.0); Alkaline Phosphatase 80 U/L (38-126); Aspartate Aminotransferase 24 IU/L (17-59); BUN Creatinine Ratio 22.8 (6-22); Bilirubin Total 0.5 mg/dL (0.2-1.3); Blood Urea Nitrogen 21 mg/dL (9-20); Calcium 8.5 mg/dL (8.4-10.2); Carbon Dioxide 26 mmol/L (22-32); Chloride 101 mmol/L (98-107); Estimated Glomerular Filt Rate > 60 mL/min (>60); Globulin 3.7 g/dL (1.7-4.1); Glucose 169 mg/dL (80-110); HEMOLYSIS < 15 (0-50); Sodium 136 mmol/L (137-145); Total Protein 7.3 g/dL (6.3-8.2)
[2022-08-17 17:02] LABS: NT-proBNP (BNP-Adult 18+) 147 pg/mL (<125); Troponin I 0.024 ng/mL (0.01-0.034)
--- NOTE | 2022-08-17 21:05 | ED_ITS ---
HPI - General Adult General Chief complaint: Shortness of Breath/Dyspnea Stated complaint: SOB, Cough, Body aches Time Seen by Provider: 08/17/22 20:49 Source: patient Mode of arrival: Ambulatory History of Present Illness HPI narrative: Patient is a 61-year-old male. Is a daily smoker who states he has no diagnosis of COPD. No prior cardiac history. Has a history of hypertension but does not take his blood pressure medications. Takes no medications on a regular basis who is here for evaluation of what he states is approximately 1 month of shortness of breath however is also having cough and body aches and worsening of his shortness of breath. No fevers. No lower extremity swelling. Denies chest pain. No skin rashes. Is denying having a nasal swab performed. Related Data Home Medications Medication Instructions Recorded Confirmed ibuprofen 200 mg tablet 600 mg PO BID PRN Pain (Scale 10/05/18 03/24/21 Score 1-3) Previous Rx's Medication Instructions Recorded epinephrine 0.3 mg/0.3 mL 0.3 mg (0.3 mL) IM ONCE PRN 10/05/18 injection, auto-injector anaphylaxis #1 ea blood pressure monitor (Blood #1 ea 12/12/18 Pressure Kit) amlodipine 10 mg tablet 10 mg PO DAILY #90 tabs 03/24/21 atorvastatin 20 mg tablet See Rx Instructions .Route 03/24/21 .COMPLEX #90 tabs irbesartan 150 mg tablet 150 mg PO DAILY #90 tabs 03/24/21 metaxalone 800 mg tablet (Skelaxin) 800 mg PO TID PRN muscle pain #90 03/24/21 tabs chlorthalidone 25 mg tablet See Rx Instructions .Route 09/29/21 .COMPLEX #90 tabs Allergies Allergy/AdvReac Type Severity Reaction Status Date / Time lisinopril AdvReac Mild cough Verified 03/24/21 17:44 Bees Allergy Severe Anaphylaxis Uncoded 06/26/19 14:10 Review of Systems Constitutional Constitutional: Reports system reviewed and no additional complaints, except as documented Cardiovascular Cardiovascular: Reports system reviewed and no additional complaints, except as documented Respiratory Respiratory: Reports system reviewed and no additional complaints, except as documented Gastrointestinal Gastrointestinal: Reports system reviewed and no additional complaints, except as documented Integumentary/Breasts Skin/Breast: Reports system reviewed and no additional complaints, except as documented Hematologic/Lymphatic On Anticoagulants: No Patient History Medical History Cataracts, bilateral (~2009) Chicken pox Chronic back pain (~1973) Degenerative disc disease, lumbar Facet joint disease Headache Hearing loss (~1994) History of hepatitis C (09/2018) PCR positive for hepatitis C virus (09/2018) Renal cyst, right Shoulder pain (~1991) Vision disorder Surgical History Anesthesia History of mandibular surgery (~1979) History of surgery on right wrist (~1980) Family History Father Cancer Mother Cancer Brother Hypertension Social History household members: none Smoking Status: Current every day smoker Tobacco: How many years used: 25 quit status: not considering quitting second hand exposure: No alcohol intake: never substance use type: does not use Smoking Status: Current every day smoker tobacco type: cigarettes Substance Use Type: does not use Exam Initial Vital Signs Initial Vital Signs: Vital Signs Temperature 98.3 F 08/17/22 15:56 Pulse Rate 101 H 08/17/22 15:56 Respiratory Rate 24 08/17/22 15:56 Blood Pressure 145/94 H 08/17/22 15:56 Pulse Oximetry 93 08/17/22 15:56 Oxygen Delivery Method 08/17/22 15:56 Const General: cooperative, comfortable and No ill appearing HENMT Head: normal to inspection Resp Effort & Inspection: normal respiratory effort Auscultation: clear to auscultation bilaterally Cardio Rate: regular rate Rhythm: regular rhythm GI Inspection: normal to inspection Skin General: no rashes or lesions noted Neuro General: patient alert, patient awake, patient oriented x3 and moves all extremities Extrem General: No edema Psych Appearance: grossly normal Course Orders Ordered: ED Orders 08/17/22 20:55 Procalcitonin Stat Trop I [Troponin I] Stat 08/17/22 22:00 Blood Culture Stat 08/17/22 22:10 Ictotest Urine Stat Urine Culture Stat Urine Microscopic Stat Acetaminophen (Acetaminophen 325 Mg Tablet) 650 mg PO Q6H PRN PRN Reason: Fever/Mild Pain (1-3) Albuterol/Ipratropium (Albuterol/Ipratropium 3 Ml Ampul) 3 ml INH [id number] [facility] Benzonatate (Benzonatate 100 Mg Capsule) 100 mg PO TID PRN PRN Reason: Cough Diclofenac Sodium (Diclofenac 1% Gel 100 Gm) 1 applic TOP QID [facility] Enoxaparin Sodium (Enoxaparin 40 Mg/0.4 Ml Syringe) 40 mg SUBCUT DAILY [facility] Guaifenesin/Codeine Phosphate (Codeine/Guaifenesin Liquid 5ml Udc) 5 ml PO Q6H PRN PRN Reason: Cough Last Admin: 08/18/22 03:28 Dose: 5 ml Documented By: KLAUDIA Metoprolol Tartrate (Metoprolol Tartrate 5 Mg/5 Ml Inj) 5 mg IV Q15MIN PRN PRN Reason: see instructions Naloxone HCl (Naloxone 0.4 Mg/Ml Vial) 0.2 mg IV Q2MIN PRN PRN Reason: Opiate Reversal Nicotine (Nicotine 21 Mg Patch) 21 mg TOP DAILY [facility] Ondansetron HCl (Ondansetron 4 Mg/2 Ml Inj) 4 mg IV Q8HR PRN PRN Reason: Nausea And Vomiting Prednisone (Prednisone 20 Mg Tablet) 40 mg PO DAILY [facility] Discontinued Medications Albuterol (Albuterol 2.5 Mg/3 Ml Neb (Adult)) 2.5 mg INH NOW ONE Stop: 08/17/22 21:06 Last Admin: 08/18/22 00:07 Dose: 2.5 mg Documented By: PRISCILA Sodium Chloride (Normal Saline 0.9%) 1,000 mls @ 125 mls/hr IV CONT ANTHONY Last Admin: 08/17/22 22:29 Dose: 125 mls/hr Documented By: ADONIS Azithromycin 500 mg/ Dextrose 250 mls @ 250 mls/hr IV NOW ONE Stop: 08/17/22 21:06 Last Infusion: 08/18/22 00:38 Dose: 0 mls/hr Documented By: Admin: 08/17/22 23:13 Dose: 250 mls/hr Documented By: IAIN Ceftriaxone Sodium 1,000 mg/ (Sodium Chloride) 100 mls @ 200 mls/hr IV NOW ONE Stop: 08/17/22 21:06 Last Infusion: 08/17/22 23:14 Dose: 0 mls/hr Documented By: Admin: 08/17/22 22:30 Dose: 200 mls/hr Documented By: ADONIS Methylprednisolone (Methylprednisolone 125 Mg/2 Ml Vial) 125 mg IV NOW ONE Stop: 08/17/22 23:31 Last Admin: 08/18/22 00:40 Dose: 125 mg Documented By: IAIN Metoprolol Tartrate (Metoprolol Tartrate 5 Mg/5 Ml Inj) 5 mg IV Q5M ANTHONY Stop: 08/18/22 03:11 Last Admin: 08/18/22 03:11 Dose: 5 mg Documented By: KLAUDIA Vital Signs Vital signs: Vital Signs - 8 hr 08/17/22 20:49 08/17/22 20:50 08/17/22 20:50 Pulse Rate 97 H 98 H Respiratory Rate Blood Pressure 143/100 H Pulse Oximetry Oxygen Delivery Method Oxygen Flow Rate 08/17/22 21:00 08/17/22 21:00 08/17/22 21:30 Pulse Rate 94 H 93 H Respiratory Rate 27 H 25 H Blood Pressure 151/106 H Pulse Oximetry 93 94 Oxygen Delivery Method Nasal Cannula Nasal Cannula Oxygen Flow Rate 2 2 08/17/22 21:31 08/17/22 21:31 08/17/22 21:46 Pulse Rate 91 H Respiratory Rate 24 Blood Pressure 135/93 H 136/99 H Pulse Oximetry 94 Oxygen Delivery Method Nasal Cannula Oxygen Flow Rate 2 08/17/22 21:46 08/17/22 22:00 08/17/22 22:00 Pulse Rate 91 H 91 H Respiratory Rate 26 H 27 H Blood Pressure 135/100 H Pulse Oximetry 94 94 Oxygen Delivery Method Nasal Cannula Nasal Cannula Oxygen Flow Rate 2 2 08/17/22 22:15 08/17/22 22:15 08/17/22 22:30 Pulse Rate 88 Respiratory Rate 23 Blood Pressure 124/91 H 136/90 Pulse Oximetry 93 Oxygen Delivery Method Nasal Cannula Oxygen Flow Rate 2 08/17/22 22:30 08/17/22 22:45 08/17/22 22:45 Pulse Rate 90 90 Respiratory Rate 27 H 24 Blood Pressure 141/90 H Pulse Oximetry 94 93 Oxygen Delivery Method Nasal Cannula Nasal Cannula Oxygen Flow Rate 2 2 Medical Decision Making Lab Data Lab results reviewed: Yes I reviewed the patient's lab results. Result diagrams: 08/17/22 16:25 08/17/22 16:25 Labs: Lab Results 12/08/17/22 08/17/22 Range/Units 16:25 16:25 16:25 WBC 8.4 (4.5-11.0) X10^3/uL RBC 4.84 (4.5-5.9) X10^6/uL Hgb 15.2 (13.5-17.5) g/dL Hct 44.9 (41-53) % MCV 92.7 (80-100) fL MCH 31.3 (26-34) PG MCHC 33.8 (30-36) % RDW 13.1 (11.6-14.8) % Plt Count 215 (150-400) X10^3/uL Neut % (Auto) 75.0 (50-75) % Lymph % (Auto) 17.5 L (25-40) % Cloud % (Auto) 6.3 (3-14) % Eos % (Auto) 0.6 L (2-4) % Baso % (Auto) 0.6 (0-2) % Neut # (Auto) 6300 (3360-5868) /uL Lymph # (Auto) 1500 (4425-4749) /uL Cloud # (Auto) 500 (0-900) /uL Eos # (Auto) 100 (0-450) /uL Baso # (Auto) 0 (0-100) /uL PT 14.8 H (10.1-12.7) SECONDS INR 1.3 (0.9-1.3) Sodium 136 L (137-145) mmol/L Potassium 4.0 (3.4-5.1) mmol/L Chloride 101 (98-107) mmol/L Carbon Dioxide 26 (22-32) mmol/L BUN 21 H (9-20) mg/dL Creatinine 0.92 (0.66-1.25) mg/dL Estimated GFR > 60 (>60) mL/min BUN/Creatinine Ratio 22.8 H (6-22) Glucose 169 H (80-110) mg/dL Lactate (0.7-2.1) mmol/L Calcium 8.5 (8.4-10.2) mg/dL Magnesium (1.6-2.3) mg/dL Total Bilirubin 0.5 (0.2-1.3) mg/dL AST 24 (17-59) IU/L ALT 17 (<50) IU/L Alkaline Phosphatase 80 (38-126) U/L Troponin I 0.024 (0.01-0.034) ng/mL NT-Pro-B Natriuret Pep 147 H (<125) pg/mL Total Protein 7.3 (6.3-8.2) g/dL Albumin 3.6 (3.5-5.0) g/dL Globulin 3.7 (1.7-4.1) g/dL Albumin/Globulin Ratio 1.0 (1.0-2.8) Procalcitonin (<0.5) ng/mL Ur Bilirubin Confirm (Negative) Urine RBC (0-5/HPF) Urine WBC (0-5/HPF) Urine Bacteria (None) Hyaline Casts (None) Urine Mucus (Negative) 08/17/22 08/17/22 08/17/22 Range/Units 16:25 20:55 20:55 WBC (4.5-11.0) X10^3/uL RBC (4.5-5.9) X10^6/uL Hgb (13.5-17.5) g/dL Hct (41-53) % MCV (80-100) fL MCH (26-34) PG MCHC (30-36) % RDW (11.6-14.8) % Plt Count (150-400) X10^3/uL Neut % (Auto) (50-75) % Lymph % (Auto) (25-40) % Cloud % (Auto) (3-14) % Eos % (Auto) (2-4) % Baso % (Auto) (0-2) % Neut # (Auto) (6569-0127) /uL Lymph # (Auto) (2856-6119) /uL Cloud # (Auto) (0-900) /uL Eos # (Auto) (0-450) /uL Baso # (Auto) (0-100) /uL PT (10.1-12.7) SECONDS INR (0.9-1.3) Sodium (137-145) mmol/L Potassium (3.4-5.1) mmol/L Chloride (98-107) mmol/L Carbon Dioxide (22-32) mmol/L BUN (9-20) mg/dL Creatinine (0.66-1.25) mg/dL Estimated GFR (>60) mL/min BUN/Creatinine Ratio (6-22) Glucose (80-110) mg/dL Lactate 1.6 (0.7-2.1) mmol/L Calcium (8.4-10.2) mg/dL Magnesium (1.6-2.3) mg/dL Total Bilirubin (0.2-1.3) mg/dL AST (17-59) IU/L ALT (<50) IU/L Alkaline Phosphatase (38-126) U/L Troponin I 0.022 (0.01-0.034) ng/mL NT-Pro-B Natriuret Pep (<125) pg/mL Total Protein (6.3-8.2) g/dL Albumin (3.5-5.0) g/dL Globulin (1.7-4.1) g/dL Albumin/Globulin Ratio (1.0-2.8) Procalcitonin 0.04 (<0.5) ng/mL Ur Bilirubin Confirm (Negative) Urine RBC (0-5/HPF) Urine WBC (0-5/HPF) Urine Bacteria (None) Hyaline Casts (None) Urine Mucus (Negative) 08/17/22 08/17/22 Range/Units 20:55 22:10 WBC (4.5-11.0) X10^3/uL RBC (4.5-5.9) X10^6/uL Hgb (13.5-17.5) g/dL Hct (41-53) % MCV (80-100) fL MCH (26-34) PG MCHC (30-36) % RDW (11.6-14.8) % Plt Count (150-400) X10^3/uL Neut % (Auto) (50-75) % Lymph % (Auto) (25-40) % Cloud % (Auto) (3-14) % Eos % (Auto) (2-4) % Baso % (Auto) (0-2) % Neut # (Auto) (4355-1744) /uL Lymph # (Auto) (9439-2746) /uL Cloud # (Auto) (0-900) /uL Eos # (Auto) (0-450) /uL Baso # (Auto) (0-100) /uL PT (10.1-12.7) SECONDS INR (0.9-1.3) Sodium (137-145) mmol/L Potassium (3.4-5.1) mmol/L Chloride (98-107) mmol/L Carbon Dioxide (22-32) mmol/L BUN (9-20) mg/dL Creatinine (0.66-1.25) mg/dL Estimated GFR (>60) mL/min BUN/Creatinine Ratio (6-22) Glucose (80-110) mg/dL Lactate (0.7-2.1) mmol/L Calcium (8.4-10.2) mg/dL Magnesium 2.0 (1.6-2.3) mg/dL Total Bilirubin (0.2-1.3) mg/dL AST (17-59) IU/L ALT (<50) IU/L Alkaline Phosphatase (38-126) U/L Troponin I (0.01-0.034) ng/mL NT-Pro-B Natriuret Pep (<125) pg/mL Total Protein (6.3-8.2) g/dL Albumin (3.5-5.0) g/dL Globulin (1.7-4.1) g/dL Albumin/Globulin Ratio (1.0-2.8) Procalcitonin (<0.5) ng/mL Ur Bilirubin Confirm Negative (Negative) Urine RBC None seen (0-5/HPF) Urine WBC None seen (0-5/HPF) Urine Bacteria None seen (None) Hyaline Casts 1-5/lpf (None) Urine Mucus 1+ H (Negative) Urine Dip Bedside Urine Glucose Negative Bedside Urine Bilirubin + 1 Bedside Urine Ketone - Negative Urine Specific [place] 1.025 Bedside Urine Occult Blood - Negative Bedside Urine pH 6.0 Bedside Urine Protein - Negative Bedside Urine Urobilinogen 0.2 Bedside Urine Nitrite + Positive Bedside Urine Leukocytes +/- 15 Esterase Point of care testing: Urine Dip Bedside Urine Glucose Negative Bedside Urine Bilirubin + 1 Bedside Urine Ketone - Negative Urine Specific [place] 1.025 Bedside Urine Occult Blood - Negative Bedside Urine pH 6.0 Bedside Urine Protein - Negative Bedside Urine Urobilinogen 0.2 Bedside Urine Nitrite + Positive Bedside Urine Leukocytes +/- 15 Esterase Imaging Data Chest x-ray: Radiologist's Impression: [address] [address] XRay Report Signed Patient: Inocencio Baptiste MR#: [id number] : 1960 Acct:[id number] Age/Sex: 61 / M Date of Service: 08/17/22 Loc: ED Accession Number: [id number] ?? Procedure: XR chest 1V Ordering Provider: Nelida Carranza D.O. PROCEDURE:? XR CHEST 1V ? INDICATIONS:? Shortness of breath ? TECHNIQUE:? One view of the chest was acquired.? ? COMPARISON:? None. ? FINDINGS:? ? Surgical changes and devices:? None.? ? Lungs and pleura:? Moderate bilateral diffuse reticulonodular pulmonary opacity. ? No pneumothorax.? Small left pleural effusion. ? Mediastinum:? Mediastinal contours appear normal.? Heart size is normal.? ? Bones and chest wall:? No suspicious bony lesions.? Overlying soft tissues appear unremarkable.? ? IMPRESSION:? Moderate bilateral pneumonia.? Small left pleural effusion. ? ? Dictated by: Tiffanie Bond M.D. on 08/17/2022 at 16:24 ? ? Approved by: Tiffanie Bond M.D. on 08/17/2022 at 16:25?? ECG Data Attestation: I personally reviewed and interpreted this ECG as follows: Interpretation: Sinus tachycardia Ventricular rate 103 Occasional PVC Normal axis Incomplete right bundle-branch block Normal QTC No ST T wave changes MDM Narrative Medical decision making narrative: Patient does have chest x-ray concerning for pneumonia although it is bilateral which is more concerning for potential COVID/influenza however the patient is refusing to have a nasal swab obtained. He is hypoxic on room air and does improve with oxygen. His lungs are clear. He was informed that the nasal swab would be helpful to determine whether not he would require antibiotics or potentially other anti viral medication such as Tamiflu or remdesivir. He was informed that he potentially could be treated inappropriately if we will did not know for certain whether or not this was bacterial versus viral. Patient expressed understanding of this and still refused to have the nasal swab obtained. We will start him on antibiotics given his chest x-ray findings and also his hypoxia. Patient does require admission to the hospital secondary to the hypoxia. I do have a suspicion that there is an underlying COPD component given his smoking history however he does not carry the specific diagnosis for that. Low suspicion that this is heart failure. Patient does require admission the hospital. Discussed the case with REBECCA Houser the night hospital provider. Discussed need for admission with the patient and family. They expressed understanding. Discharge Plan Departure Patient Disposition: Admitted as Observation Clinical Impression: Pneumonia, Hypoxia, Hypertension Admit Date/Time: 08/17/22 22:51 Admit Provider: Iveth Houser
[2022-08-17 21:25] LABS: Troponin I 0.022 ng/mL (0.01-0.034)
[2022-08-17 21:55] LABS: Procalcitonin 0.04 ng/mL (<0.5)
[2022-08-17 22:28] LABS: Bacteria Urine None Seen; Hyaline Casts Urine 1-5/LPF; Ictotest Urine Negative (Negative); Mucus Urine 1+ (Negative); RBC Urine None Seen (0-5/HPF); WBC Urine None Seen (0-5/HPF)
[2022-08-17] MEDS: SODIUM CHLORIDE 0.9% 1,000 ML 125 ML IV (22:29)
[2022-08-17] MEDS: cefTRIAXone 1,000 MG in SODIUM CHLORIDE 0.9% 100 ML 200 MG IV (22:30)
[2022-08-17] MEDS: AZITHROMYCIN 500 MG in DEXTROSE 5% IN WATER 250 ML 250 MG IV (23:13)
--- NOTE | 2022-08-17 23:37 | PM.HP.1 ---
History of Present Illness History of Present Illness Date Patient Seen: 08/17/22 Time Patient Seen: 23:38 Chief complaint: SOB, Cough, Body aches Narrative: Inocencio Baptiste is a 61-year-old male with a history of essential hypertension, hyperlipidemia, long-term tobacco abuse, Hx of alcohol and cocaine use 20 years ago, chronic hepatitis-C with hepatic coma-Resolved w/tx, who presented to the emergency department with several weeks of worsening shortness of breath, cough, body aches, worsening in the last 24 hours, tachypneic tachycardic on admit. Patient denies headache, changes in vision, weakness, numbness, tingling, abdominal pain, nausea, vomiting, diarrhea, constipation, hematemesis, hematuria, urinary symptoms, melena, recent falls injury or trauma. Patient had previously been evaluated by Dr. Troncoso cardiology in 2019 and was on lisinopril amlodipine and chlorthalidone for hypertension, Lipitor & irbeosartan for hyperlipidemia but patient reports that he no longer takes any of these medications. Patient desatted to the low 80s on room air in the ED department. The time of admit patient's temp 98.3?, BP 102/55, HR 110, R 18 currently patient is on 3 L at 91%. CBC is mostly unremarkable, sodium 136, glucose 169, lactate and procalcitonin WNL, troponin was normal but mildly elevated 0.024 repeat was 0.022, EKG sinus tachycardia with occasional PVCs right access, with an incomplete right bundle-branch block no previous EKGs for comparison and no echo reflected in the chart. Patient's chest x-ray demonstrated moderate bilateral pneumonia with a small left pleural effusion. BUN 147. Patient admitted with acute respiratory failure with hypoxia likely secondary to bilateral pneumonia it is noted that patient refused respiratory panel and COVID swabbing so unable to determine if the patient has influenza a B RSV or COVID at this time. Patient History Medical History Cataracts, bilateral (~2009) Chicken pox Chronic back pain (~1973) Degenerative disc disease, lumbar Facet joint disease Headache Hearing loss (~1994) History of hepatitis C (09/2018) PCR positive for hepatitis C virus (09/2018) Renal cyst, right Shoulder pain (~1991) Vision disorder Surgical History Anesthesia History of mandibular surgery (~1979) History of surgery on right wrist (~1980) Family & Social History Family History Father Cancer Mother Cancer Brother Hypertension Social History: household members none Safety & Behavioral: Feels Safe in Current Yes Environment Been Physically Hurt or No Threatened By a Person Tobacco & Substance use: Smoking Status Current every day smoker alcohol intake never Substance Use Type does not use Meds Home Medications and Allergies Home Medications Medication Instructions Recorded Confirmed Type epinephrine 0.3 mg/0.3 mL 0.3 mg (0.3 mL) IM ONCE PRN 10/05/18 03/24/21 Rx injection, auto-injector anaphylaxis #1 ea ibuprofen 200 mg tablet 600 mg PO BID PRN Pain (Scale 10/05/18 03/24/21 History Score 1-3) blood pressure monitor (Blood #1 ea 12/12/18 03/24/21 Rx Pressure Kit) amlodipine 10 mg tablet 10 mg PO DAILY #90 tabs 03/24/21 03/24/21 Rx atorvastatin 20 mg tablet See Rx Instructions .Route 03/24/21 03/24/21 Rx .COMPLEX #90 tabs irbesartan 150 mg tablet 150 mg PO DAILY #90 tabs 03/24/21 03/24/21 Rx metaxalone 800 mg tablet (Skelaxin) 800 mg PO TID PRN muscle pain #90 03/24/21 03/24/21 Rx tabs chlorthalidone 25 mg tablet See Rx Instructions .Route 09/29/21 Rx .COMPLEX #90 tabs Allergies Allergy/AdvReac Type Severity Reaction Status Date / Time lisinopril AdvReac Mild cough Verified 03/24/21 17:44 Bees Allergy Severe Anaphylaxis Uncoded 06/26/19 14:10 Review of Systems Review of Systems Narrative: All 12 point systems reviewed with the patient and are negative except otherwise documented. Exam Vital Signs (past 8 hours): - 08/17/22 15:56 08/17/22 18:57 Temperature 98.3 F Pulse Rate 101 H 110 H Respiratory Rate 24 18 Blood Pressure 145/94 H 102/55 L Pulse Oximetry 93 91 Oxygen Delivery Method Room Air Room Air Oxygen Delivery Method Room Air Narrative Exam Narrative: General: Patient is a thin male, appears chronically ill and older than stated age, restless in mild discomfort but in no acute distress at this time. HEENT: Normocephalic, atraumatic, extraocular muscles intact, oral pharynx is clear and mucous membranes are very dry Neck is supple and symmetric, trachea is midline Negative for JVD Chest: possible mild kyphoscoliosis, no nasal flaring, retractions, positive for tachypneic, and very mild labored breathing, and orthopnic. Lungs: Auscultation of all lung gonzales are coarse poor air exchange, decreased throughout, greater in bases, coarse crackles, with extensive expiratory wheezing, audible wheezing, with significant upper respiratory congestion. Cardio: regular rate and rhythm without murmur, rubs, or gallops, no carotid bruit, no cardiac pulsations present. Abdomen: Soft nontender, negative for organomegaly, or masses. Bowel sounds are hypoactive present in all 4 quadrants without guarding or rebound, no CVA tenderness. Musculoskeletal: Muscle strength and tone are equal, no deformity, crepitus, effusions, cyanosis, clubbing or edema present. Full range of motion intact radial and pedal pulses are normal. Skin: Warm dry and intact without rashes, ulcerations or petechiae. Noted nicotine yellowing discoloration around mouth nose and fingers. Neuro: Alert and orientated x3, moves all extremities, sensation to touch intact, no gross deficits noted of cranial nerves. Psych: Patient has a moderate-kept appearance, appropriate affect. Patient refused to allow staff to perform nasal swab for respiratory panel, COVID, RSV, and influenza testing. Objective Labs Result Diagrams: 08/17/22 16:25 08/17/22 16:25 Labs: Laboratory Results - last 24 hr 08/17/22 08/17/22 08/17/22 16:25 16:25 16:25 WBC 8.4 RBC 4.84 Hgb 15.2 Hct 44.9 MCV 92.7 MCH 31.3 MCHC 33.8 RDW 13.1 Plt Count 215 Neut % (Auto) 75.0 Lymph % (Auto) 17.5 L [place] % (Auto) 6.3 Eos % (Auto) 0.6 L Baso % (Auto) 0.6 Neut # (Auto) 6300 Lymph # (Auto) 1500 [place] # (Auto) 500 Eos # (Auto) 100 Baso # (Auto) 0 PT 14.8 H INR 1.3 Sodium 136 L Potassium 4.0 Chloride 101 Carbon Dioxide 26 BUN 21 H Creatinine 0.92 Estimated GFR > 60 BUN/Creatinine Ratio 22.8 H Glucose 169 H Lactate Calcium 8.5 Total Bilirubin 0.5 AST 24 ALT 17 Alkaline Phosphatase 80 Troponin I 0.024 NT-Pro-B Natriuret Pep 147 H Total Protein 7.3 Albumin 3.6 Globulin 3.7 Albumin/Globulin Ratio 1.0 Procalcitonin Ur Bilirubin Confirm Urine RBC Urine WBC Urine Bacteria Hyaline Casts Urine Mucus 08/17/22 08/17/22 08/17/22 16:25 20:55 20:55 WBC RBC Hgb Hct MCV MCH MCHC RDW Plt Count Neut % (Auto) Lymph % (Auto) [place] % (Auto) Eos % (Auto) Baso % (Auto) Neut # (Auto) Lymph # (Auto) [place] # (Auto) Eos # (Auto) Baso # (Auto) PT INR Sodium Potassium Chloride Carbon Dioxide BUN Creatinine Estimated GFR BUN/Creatinine Ratio Glucose Lactate 1.6 Calcium Total Bilirubin AST ALT Alkaline Phosphatase Troponin I 0.022 NT-Pro-B Natriuret Pep Total Protein Albumin Globulin Albumin/Globulin Ratio Procalcitonin 0.04 Ur Bilirubin Confirm Urine RBC Urine WBC Urine Bacteria Hyaline Casts Urine Mucus 08/17/22 22:10 WBC RBC Hgb Hct MCV MCH MCHC RDW Plt Count Neut % (Auto) Lymph % (Auto) [place] % (Auto) Eos % (Auto) Baso % (Auto) Neut # (Auto) Lymph # (Auto) [place] # (Auto) Eos # (Auto) Baso # (Auto) PT INR Sodium Potassium Chloride Carbon Dioxide BUN Creatinine Estimated GFR BUN/Creatinine Ratio Glucose Lactate Calcium Total Bilirubin AST ALT Alkaline Phosphatase Troponin I NT-Pro-B Natriuret Pep Total Protein Albumin Globulin Albumin/Globulin Ratio Procalcitonin Ur Bilirubin Confirm Negative Urine RBC None seen Urine WBC None seen Urine Bacteria None seen Hyaline Casts 1-5/lpf Urine Mucus 1+ H Assessment & Plan Assessment & Plan narrative: Inocencio Baptiste is a 61-year-old male with a history of essential hypertension, hyperlipidemia, long-term tobacco abuse, chronic hepatitis-C with hepatic, who presented to the emergency department with several weeks of worsening shortness of breath, cough, body aches, worsening in the last 24 hours. Patient admitted with acute respiratory failure with hypoxia likely secondary to bilateral pneumonia, with COPD exacerbation secondary to chronic tobacco abuse. 1. Acute respiratory failure with hypoxia, acute, present on admission secondary to bilateral pneumonia. -patient refused respiratory panel and COVID swabbing so unable to determine if the patient has influenza a B RSV or COVID at this time. -provided patient education regarding the helpfulness to titrate specific strategies for illness management and treatment based on lab results patient still refused, will continue symptom management. -believe this was brought on by chronic tobacco abuse, COPD exacerbation with superimposed viral pneumonia. -Patient desatted to the low 80s on room air in the ED department. -temp 98.3?, BP 102/55, HR 110, R 18 currently patient is on 3 L at 91% -symptom management, respiratory consult, DuoNebs, prednisone, 1 time dose Solu-Medrol, incentive spirometry 2. Bilateral pneumonia, acute, present on admission -believe this to be viral pneumonia in combination of exacerbation of COPD -chest x-ray demonstrated moderate bilateral pneumonia with a small left pleural effusion. -no white count, left shift, lactate and procalcitonin WNL -ordered sputum and blood cultures pending, we will monitor inflammatory markers-and apply antibiotics as medically appropriate. -symptom management, respiratory consult, DuoNebs, prednisone, 1 time dose Solu-Medrol, incentive spirometry 3. Hypertension, essential, acute on chronic, present on admission- uncontrolled -patient medication noncompliance -Patient had previously been evaluated by Dr. Troncoso cardiology in 2019 and was on lisinopril amlodipine and chlorthalidone for hypertension, Lipitor & irbeosartan for hyperlipidemia but patient reports that he no longer takes any of these medications. -IV push metoprolol ordered for bridging- -initial troponin 0.024, repeat 0.022-trend for a total of 3 -EKG sinus tachycardia with occasional PVCs right axis, incomplete right BBB -Monitor on [employer] 4. Tobacco abuse, chronic, likely COPD, exacerbation, acute on chronic, present on admission -patient education provided encouraged tobacco cessation -recommend patient have outpatient follow-up with pulmonology for pulmonary function testing, and initiation of chronic daily medication management to include albuterol, Advair and Spiriva. -nicotine patch provided 5. Hx of Chronic hepatitis-C with hepatic coma, resolved with treatment 6. Hyperlipidemia, chronic, present on admission -patient medication noncompliance -Patient had previously been evaluated by Dr. Troncoso cardiology in 2019 and was on lisinopril amlodipine and chlorthalidone for hypertension, Lipitor & irbeosartan for hyperlipidemia but patient reports that he no longer takes any of these medications. Code status:DNI Surrogate decision maker: Holly yip-daughter COVEBBO PCR:Unknown- pt refused testing DVT/VTE prophylaxis: Lovenox and SCDs Disposition: Patient admitted to acute care for acute respiratory failure with hypoxia bilateral pneumonia, expected length of stay greater than 2 midnights. I have utilized all available immediate resources to obtain, update, or review the patient's current medications. I confirmed that the patient's advanced care plan is present, Code status is documented and/or surrogate decision maker is listed in the patient's medical record. I have personally reviewed patient's chart notes from PCP, specialists, diagnostic imaging, and laboratory, Time Spent With Patient Critical Care time: I spent a total of [] minutes of critical care time on this patient's care today; this time is exclusive of procedural time.
[2022-08-18] VITALS (46 sets, daily range): BP systolic 117–178; BP diastolic 74–117; PULSE 80–101; RESP 16–33; O2SAT 87–97
[2022-08-18] MEDS: ALBUTEROL 2.5 MG/3 ML NEB (ADULT) INH (00:07)
[2022-08-18] MEDS: methylPREDNISolone 125 MG/2 ML VIAL IV (00:40)
[2022-08-18] MEDS: METOPROLOL TARTRATE 5 MG/5 ML INJ IV (03:11)
[2022-08-18] MEDS: CODEINE/GUAIFENESIN LIQUID 5ML UDC 5 ML PO (03:28)
[2022-08-18 07:00] LABS: Add Manual Diff / Slide Review NO; Basophils Absolute Auto 0 /uL (0-100); Basophils Percent Auto 0.5 % (0-2); Eosinophils Absolute Auto 0 /uL (0-450); Eosinophils Percent Auto 0.1 % (2-4); Hematocrit 42.2 % (41-53); Hemoglobin 14.3 g/dL (13.5-17.5); INR 1.3 (0.9-1.3); Lymphocytes Absolute Auto 900 /uL (1100-4500); Lymphocytes Percent Auto 11.3 % (25-40); Mean Corpuscular HGB Conc 33.9 % (30-36); Mean Corpuscular Hemoglobin 31.3 PG (26-34); Mean Corpuscular Volume 92.4 fL (80-100); Monocytes Absolute Auto 100 /uL (0-900); Monocytes Percent Auto 0.8 % (3-14); Neutrophils Absolute Auto 6900 /uL (1500-7000); Neutrophils Percent Auto 87.3 % (50-75); Platelet Count 212 X10^3/uL (150-400); Prothrombin Time 14.5 SECONDS (10.1-12.7); Red Blood Cell Count 4.57 X10^6/uL (4.5-5.9); Red Cell Distribution Width 13.2 % (11.6-14.8); White Blood Cell Count 7.9 X10^3/uL (4.5-11.0)
[2022-08-18 07:06] LABS: BUN Creatinine Ratio 27.6 (6-22); Blood Urea Nitrogen 21 mg/dL (9-20); Calcium 8.4 mg/dL (8.4-10.2); Carbon Dioxide 23 mmol/L (22-32); Chloride 104 mmol/L (98-107); Estimated Glomerular Filt Rate > 60 mL/min (>60); Glucose 150 mg/dL (80-110); HEMOLYSIS < 15 (0-50); Potassium 4.5 mmol/L (3.4-5.1); Sodium 135 mmol/L (137-145)
[2022-08-18] MEDS: ALBUTEROL/IPRATROPIUM 3 ML AMPUL INH ×2 (07:51→11:42)
[2022-08-18] MEDS: ENOXAPARIN 40 MG/0.4 ML SYRINGE SUBCUT (09:25)
[2022-08-18] MEDS: BENZONATATE 100 MG CAPSULE PO (09:25)
[2022-08-18] MEDS: DICLOFENAC 1% GEL 100 GM 1 APPLIC TOP (09:26)
[2022-08-18] MEDS: NICOTINE 21 MG PATCH TOP (09:26)
[2022-08-18] MEDS: predniSONE 20 MG TABLET 40 MG PO (09:28)
--- NOTE | 2022-08-18 11:48 | PC.NURSE ---
IP physician, Dr Jacinto, consulted pt at the bedside in ED with RN present. Doctor recommended respiratory panel swab for diagnosis and tx of respiratory symptoms. Pt adamantly declined any testing that required a nasal swab. Doctor explained risks of not being tested, pt verbalized understanding. Risks vs benefits were discussed multiple times with patient re: his respiratory symptoms. Patient was argumentative and resistant to patient education. Patient continued to debate the political motives of covid testing and stated this hospital issues financial bonuses to physicians who diagnose covid. Physician explained the discharge plan, in depth, and pt verbalized understanding. Pt was advised to stop smoking, nicotine patches to be ordered at d/c.
--- NOTE | 2022-08-18 13:12 | PC.NURSE ---
Respiratory therapist Maite in room educating patient on use of oxygen tank that is being sent home with patient. RT educated patient on dangers of smoking while o2 is in use, or anywhere near the o2.
--- NOTE | 2022-08-18 13:48 | P.DS_ITS ---
History of Present Illness History of Present Illness Date Patient Seen: 08/17/22 Time Patient Seen: 23:38 Chief complaint: SOB, Cough, Body aches Narrative: Inocencio Baptiste is a 61-year-old male with a history of essential hypertension, hyperlipidemia, long-term tobacco abuse, Hx of alcohol and cocaine use 20 years ago, chronic hepatitis-C with hepatic coma-Resolved w/tx, who presented to the emergency department with several weeks of worsening shortness of breath, cough, body aches, worsening in the last 24 hours, tachypneic tachycardic on admit. Patient denies headache, changes in vision, weakness, numbness, tingling, abdominal pain, nausea, vomiting, diarrhea, constipation, hematemesis, hematuria, urinary symptoms, melena, recent falls injury or trauma. Patient had previously been evaluated by Dr. Troncoso cardiology in 2019 and was on lisinopril amlodipine and chlorthalidone for hypertension, Lipitor & irbeosartan for hyperlipidemia but patient reports that he no longer takes any of these medications. Patient desatted to the low 80s on room air in the ED department. The time of admit patient's temp 98.3?, BP 102/55, HR 110, R 18 currently pa tient is on 3 L at 91%. CBC is mostly unremarkable, sodium 136, glucose 169, lactate and procalcitonin WNL, troponin was normal but mildly elevated 0.024 repeat was 0.022, EKG sinus tachycardia with occasional PVCs right access, with an incomplete right bundle-branch block no previous EKGs for comparison and no echo reflected in the chart. Patient's chest x-ray demonstrated moderate bilateral pneumonia with a small left pleural effusion. BUN 147. Patient admitted with acute respiratory failure with hypoxia likely secondary to bilateral pneumonia it is noted that patient refused respiratory panel and COVID swabbing so unable to determine if the patient has influenza a B RSV or COVID at this time. Discharge Providers Provider Date of admission: 08/17/22 22:51 Discharge Date: 08/18/22 Primary care physician: KELLI Morejon Consults: 08/17/22 23:32 Consult to Cardio/Pulmonary Rehabilitation Routine Comment: Physician Instructions: Evaluate and treat Discharge provider: Himanshu Dee MD Summary Hospital Course Discharge Diagnosis: 1. Acute hypoxemic respiratory failure 2. Pneumonia 3. Probable COPD 4. Tobacco smoker 5. Hypertension Hospital Course: Mr. Baptiste came in to the hospital with trouble breathing. He was requiring oxygen as on room air his sats were in the 80s. He was treated with antibiotics, prednisone, and nebulizers. The next day he was feeling better. Of note he refused to be tested for multiple infections including the flu and COVID. There is high suspicion for this due to flu positivity being quite high currenlty in the area. He stated he was distrustful of COVID tests, and indicated distrust of doctors as he stated they make more money for each COVID tests and will continue to recheck the test until it was positive. He requested ivermectin protocol and hydroxycholorquine, this was declined as it was not medically indicated. Ultimately appropriate management for him was difficult given his distrust and his refusal of certain medical care. He did feel better and was agreeable to going home. He was encouraged to return to the hospital if feeling worse, and warned that he could have significant morbidity including as we were not able to test him as indicated and potentially treat him for his disease. He expressed understanding. He was discharged with oxygen (and recommended not to smoke while using it). He was discharged with HUNG with spacer, LABA, antibiotics, steroids, tamiflu and medication for cough symptoms. He was encouraged to follow up with his PCP this week and encouraged to setup outpatient PFTs with his PCP to determine if he had COPD. He was interested in stopping smoking and he was provided a nicotine patch. DC time: 40 minutes Exam Vital Signs (past 8 hours): - 08/18/22 05:59 08/18/22 06:00 08/18/22 06:00 Pulse Rate 80 80 Respiratory Rate 17 17 Blood Pressure 136/89 Pulse Oximetry 87 L Oxygen Delivery Method Oxygen Flow Rate 08/18/22 06:30 08/18/22 06:30 08/18/22 07:00 Pulse Rate 82 Respiratory Rate 18 Blood Pressure 147/100 H 164/108 H Pulse Oximetry 92 Oxygen Delivery Method Oxygen Flow Rate 08/18/22 07:00 08/18/22 07:51 08/18/22 11:42 Pulse Rate 83 80 92 H Respiratory Rate 25 H 26 H 26 H Blood Pressure Pulse Oximetry 91 93 93 Oxygen Delivery Method Oxygen Flow Rate 2 2 08/18/22 07:30 08/18/22 07:30 08/18/22 08:00 Pulse Rate 85 Respiratory Rate 18 Blood Pressure 138/94 H 132/91 H Pulse Oximetry 94 Oxygen Delivery Method Nasal Cannula Oxygen Flow Rate 2 08/18/22 08:00 08/18/22 08:30 08/18/22 08:30 Pulse Rate 81 82 Respiratory Rate 19 20 Blood Pressure 135/86 Pulse Oximetry 94 93 Oxygen Delivery Method Nasal Cannula Nasal Cannula Oxygen Flow Rate 2 2 08/18/22 09:00 08/18/22 09:00 08/18/22 09:30 Pulse Rate 87 Respiratory Rate 21 Blood Pressure 155/89 H 132/89 Pulse Oximetry 94 Oxygen Delivery Method Nasal Cannula Oxygen Flow Rate 2 08/18/22 09:30 08/18/22 10:00 08/18/22 10:00 Pulse Rate 86 86 Respiratory Rate 20 21 Blood Pressure 117/74 Pulse Oximetry 93 91 Oxygen Delivery Method Oxygen Flow Rate 08/18/22 10:30 08/18/22 10:30 08/18/22 11:00 Pulse Rate 91 H Respiratory Rate 17 Blood Pressure 164/103 H 178/117 H Pulse Oximetry 91 Oxygen Delivery Method Oxygen Flow Rate 08/18/22 11:00 08/18/22 11:30 08/18/22 11:30 Pulse Rate 101 H 91 H Respiratory Rate 30 H 21 Blood Pressure 160/105 H Pulse Oximetry 91 92 Oxygen Delivery Method Oxygen Flow Rate 08/18/22 12:00 08/18/22 12:01 08/18/22 12:01 Pulse Rate 92 H 93 H Respiratory Rate 24 20 Blood Pressure 127/96 H Pulse Oximetry 92 94 94 Oxygen Delivery Method Nasal Cannula Oxygen Flow Rate 2 08/18/22 12:30 08/18/22 12:30 08/18/22 13:00 Pulse Rate 96 H Respiratory Rate 22 Blood Pressure 136/96 H 130/92 H Pulse Oximetry 92 Oxygen Delivery Method Nasal Cannula Oxygen Flow Rate 2 08/18/22 13:00 Pulse Rate 93 H Respiratory Rate 22 Blood Pressure Pulse Oximetry 92 Oxygen Delivery Method Nasal Cannula Oxygen Flow Rate 2 Fraction of Inspired Oxygen 28 SaO2/FiO2 Ratio 346 Oxygen Delivery Method Nasal Cannula Oxygen Flow Rate 2 Narrative Exam Narrative: GEN: comfortable on oxygen PULM: scattered wheezes CV: regular rate and rhythm, no murmurs ABD: soft, nontender, nondistended, no organomegaly EXT: warm and well perfused, no edema Objective Labs Result Diagrams: 08/18/22 06:30 08/18/22 06:30 Labs: Laboratory Results - last 24 hr 08/17/22 08/17/22 08/17/22 16:25 16:25 16:25 WBC 8.4 RBC 4.84 Hgb 15.2 Hct 44.9 MCV 92.7 MCH 31.3 MCHC 33.8 RDW 13.1 Plt Count 215 Neut % (Auto) 75.0 Lymph % (Auto) 17.5 L [place] % (Auto) 6.3 Eos % (Auto) 0.6 L Baso % (Auto) 0.6 Neut # (Auto) 6300 Lymph # (Auto) 1500 [place] # (Auto) 500 Eos # (Auto) 100 Baso # (Auto) 0 PT 14.8 H INR 1.3 Sodium 136 L Potassium 4.0 Chloride 101 Carbon Dioxide 26 BUN 21 H Creatinine 0.92 Estimated GFR > 60 BUN/Creatinine Ratio 22.8 H Glucose 169 H Lactate Calcium 8.5 Magnesium Total Bilirubin 0.5 AST 24 ALT 17 Alkaline Phosphatase 80 Troponin I 0.024 NT-Pro-B Natriuret Pep 147 H Total Protein 7.3 Albumin 3.6 Globulin 3.7 Albumin/Globulin Ratio 1.0 Procalcitonin Ur Bilirubin Confirm Urine RBC Urine WBC Urine Bacteria Hyaline Casts Urine Mucus 08/17/22 08/17/22 08/17/22 16:25 20:55 20:55 WBC RBC Hgb Hct MCV MCH MCHC RDW Plt Count Neut % (Auto) Lymph % (Auto) [place] % (Auto) Eos % (Auto) Baso % (Auto) Neut # (Auto) Lymph # (Auto) [place] # (Auto) Eos # (Auto) Baso # (Auto) PT INR Sodium Potassium Chloride Carbon Dioxide BUN Creatinine Estimated GFR BUN/Creatinine Ratio Glucose Lactate 1.6 Calcium Magnesium Total Bilirubin AST ALT Alkaline Phosphatase Troponin I 0.022 NT-Pro-B Natriuret Pep Total Protein Albumin Globulin Albumin/Globulin Ratio Procalcitonin 0.04 Ur Bilirubin Confirm Urine RBC Urine WBC Urine Bacteria Hyaline Casts Urine Mucus 08/17/22 08/17/22 08/18/22 20:55 22:10 06:30 WBC 7.9 RBC 4.57 Hgb 14.3 Hct 42.2 MCV 92.4 MCH 31.3 MCHC 33.9 RDW 13.2 Plt Count 212 Neut % (Auto) 87.3 H Lymph % (Auto) 11.3 L [place] % (Auto) 0.8 L Eos % (Auto) 0.1 L Baso % (Auto) 0.5 Neut # (Auto) 6900 Lymph # (Auto) 900 L [place] # (Auto) 100 Eos # (Auto) 0 Baso # (Auto) 0 PT INR Sodium Potassium Chloride Carbon Dioxide BUN Creatinine Estimated GFR BUN/Creatinine Ratio Glucose Lactate Calcium Magnesium 2.0 Total Bilirubin AST ALT Alkaline Phosphatase Troponin I NT-Pro-B Natriuret Pep Total Protein Albumin Globulin Albumin/Globulin Ratio Procalcitonin Ur Bilirubin Confirm Negative Urine RBC None seen Urine WBC None seen Urine Bacteria None seen Hyaline Casts 1-5/lpf Urine Mucus 1+ H 08/18/22 08/18/22 06:30 06:30 WBC RBC Hgb Hct MCV MCH MCHC RDW Plt Count Neut % (Auto) Lymph % (Auto) [place] % (Auto) Eos % (Auto) Baso % (Auto) Neut # (Auto) Lymph # (Auto) [place] # (Auto) Eos # (Auto) Baso # (Auto) PT 14.5 H INR 1.3 Sodium 135 L Potassium 4.5 Chloride 104 Carbon Dioxide 23 BUN 21 H Creatinine 0.76 Estimated GFR > 60 BUN/Creatinine Ratio 27.6 H Glucose 150 H Lactate Calcium 8.4 Magnesium Total Bilirubin AST ALT Alkaline Phosphatase Troponin I NT-Pro-B Natriuret Pep Total Protein Albumin Globulin Albumin/Globulin Ratio Procalcitonin Ur Bilirubin Confirm Urine RBC Urine WBC Urine Bacteria Hyaline Casts Urine Mucus [facility] Medical History Cataracts, bilateral (~2009) Chicken pox Chronic back pain (~1973) Degenerative disc disease, lumbar Facet joint disease Headache Hearing loss (~1994) History of hepatitis C (09/2018) PCR positive for hepatitis C virus (09/2018) Renal cyst, right Shoulder pain (~1991) Vision disorder Surgical History Anesthesia History of mandibular surgery (~1979) History of surgery on right wrist (~1980) Family History Father Cancer Mother Cancer Brother Hypertension Social History household members: none Smoking Status: Current every day smoker Tobacco: How many years used: 25 quit status: not considering quitting second hand exposure: No alcohol intake: never substance use type: does not use Discharge Plan Discharge Plan Patient Disposition: Home Provider Discharge Comment: Mr. Baptiste was admitted to the hospital with trouble breathing. He had a pneumonia, and likely has COPD. He felt better with oxygen, breathing treatments, steroids and antibiotics. He declined flu and COVID testing. He is discharged with albuterol (a rescue inhaler to be used as needed every 4 hours as needed), tiotropium (an inhaler for COPD), levofloxacin (antibiotics for pneumonia), oseltamivir (also known as tamiflu for the flu), prednisone (steroid that works as anti-inflammatory). He is also given benzonatate (cough medication). He is ordered for a nicotine patch. He should not smoke cigarettes while using oxygen as that could ignite/explode and be dangerous. He is interested in quitting smoking. He should follow up with his PCP within a few days and will need pulmonary function tests to determine if he has COPD. He had sats in the 80s on room air likely secondary to COPD and had RT evaluation to setup for home oxygen. Discharge orders & Medications Prescriptions: New benzonatate 100 mg Capsule 100 mg PO TID PRN (Reason: Cough) Qty: 20 0RF nicotine 21 mg/24 hr Patch 24 Hour 21 mg topical DAILY Qty: 28 0RF prednisone 20 mg Tablet 40 mg PO DAILY Qty: 5 0RF levofloxacin 750 mg tablet 750 mg PO DAILY Qty: 5 0RF oseltamivir [Tamiflu] 75 mg capsule 75 mg PO BID 5 Days Qty: 10 0RF albuterol sulfate 90 mcg/actuation HFA aerosol inhaler 2 puff inhalation Q4-6H PRN (Reason: shortness of breath or wheezing) Qty: 6.7 0RF tiotropium bromide 18 mcg capsule, w/inhalation device 1 cap inhalation DAILY Qty: 30 0RF Rx Instructions: puncture 1 cap using device; one dose = 2 inhalations (DME) BreatheRite MDI Spacer Spacer See Rx Instructions .Route Qty: 1 0RF Rx Instructions: As directed Continued ibuprofen 200 mg tablet 600 mg PO BID PRN (Reason: Pain (Scale Score 1-3)) epinephrine 0.3 mg/0.3 mL auto-injector 0.3 mg IM ONCE PRN (Reason: anaphylaxis) Qty: 1 3RF Rx Instructions: For use upon bee sting chlorthalidone 25 mg tablet See Rx Instructions .ROUTE .COMPLEX Qty: 90 0RF Dose Instruction: TAKE ONE TABLET BY MOUTH ONE TIME DAILY Rx Instructions: TAKE ONE TABLET BY MOUTH ONE TIME DAILY metaxalone [Skelaxin] 800 mg tablet 800 mg PO TID PRN (Reason: muscle pain) Qty: 90 0RF Rx Instructions: may make drowsy, do not drive atorvastatin 20 mg tablet See Rx Instructions .ROUTE .COMPLEX Qty: 90 1RF Dose Instruction: TAKE ONE TABLET BY MOUTH NIGHTLY AT BEDTIME Follow-up with PCP for further refills Rx Instructions: TAKE ONE TABLET BY MOUTH NIGHTLY AT BEDTIME amlodipine 10 mg tablet 10 mg PO DAILY Qty: 90 2RF Rx Instructions: please confirm dose, he states he is taking 10mg daily irbesartan 150 mg tablet 150 mg PO DAILY Qty: 90 2RF Rx Instructions: disregard Rx for losartan, stop lisinopril (DME) blood pressure monitor [Blood Pressure Kit] kit See Dose Instructions .ROUTE .MEDSUPPLY Qty: 1 0RF Dose Instruction: As directed Rx Instructions: As directed Follow up/Referrals: Kelly Esquivel ARNP [Primary Care Provider] - 3-5 Days (respiratory failure, possible new copd, pneumonia but declined testing) Discharge Health Status Multidrug resistant organism: No MDRO Diet/Activity/Treatments Diet: Regular Visit Report/Discharge Packet Instructions: Pneumonia-Adult, DI for Hypoxia Discharge Data Primary Care Provider: Kelly Esquivel
--- NOTE | 2022-08-26 08:19 | CM.DPNOTE ---
[employer]: Updated [employer] rep by phone of patient's DC date and dispo JW
== END 2022-08-18 12:30 | disposition home or self-care (01) | DRG 139 ==
LOC: ED 21:12 → AC 22:52
PROVIDERS: Emergency Medicine; Admitting Provider Nurse Practitioner Family; Emergency Provider Emergency Medicine; Family Provider Physician Assistant; PCP Nurse Practitioner Family; Referring Provider Emergency Medicine; Visit Provider Nurse Practitioner Family
DX: J18.9 Pneumonia, unspecified organism (principal); J96.01 Acute respiratory failure with hypoxia; I10 Essential (primary) hypertension; E78.5 Hyperlipidemia, unspecified; J44.1 Chronic obstructive pulmonary disease with (acute) exacerbation; F17.200 Nicotine dependence, unspecified, uncomplicated; Z91.14 Patient's other noncompliance with medication regimen
CPT/HCPCS: 36415; 71045; 80048; 80053; 81003; 81015; 83605; 83735; 83880; 84145; 84484; 85025; 85610; 87040; 87070; 87086; 87205; 93005; 94618; 94640; 96365; 96367; 96372; 96375; 99284; 99285; J0696; J1650; J2930; J7613